=== PATIENT | female | born 1940 | race Caucasian/White ===

== ENCOUNTER 2017-07-24 08:08 | Inpatient (IN) | payer OTHER, MEDICARE ==
[~2017-07-24] VITALS: Ht 167.6 cm; Wt 96.2 kg
[~2017-07-24 08:08] MED LIST: ASPIRIN EC81 M1 PO; AUGMENTIN 875875 MG PO; DEXAMETHASONE4 MG PO; MULTIVITAMIN1 TA1 PO; PROTONIX 40MG T40 MG PO; REVLIMID25 MG PO; VITAMIN D2000 UNI1 PO
--- NOTE | 2017-07-24 08:16 | ED GENERAL ADULT ---
History of Present Illness General Chief Complaint: General Adult Stated Complaint: RECTAL BLEEDING Source: patient, family, old records Exam Limitations: no limitations Allergies Coded Allergies: methocarbamol (Severe, PARALYSIS FROM WAIST DOWN 07/24/17) STATINS (Intermediate, BODY ACHES 02/28/13) Reconcile Medications Acyclovir 400 MG TABLET 1 TAB PO DAILY CANCER (Reported) Amoxicillin/Clavulanate Potass (Amox-Clav 875-125 MG Tablet) 875 MG-125 MG TABLET 1 TAB PO BID ANTIBIOTIC, INFECTION (Reported) Aspirin (Ecotrin*) 81 MG TABLET.DR 1 TAB PO DAILY PE (Reported) Atorvastatin Calcium (Lipitor) 10 MG TABLET 1 TAB PO DAILY CHOLESTEROL ( Reported) Bevacizumab (Avastin) 25 MG/ML VIAL 1 INJ INJ Q30D EYE (Reported) Calcium Citrate 250 MG CALCIUM TABLET 50 MG PO DAILY SUPPLEMENT (Reported) Cholecalciferol (Vitamin D3) (Vitamin D) 2,000 UNIT TABLET 1 TAB PO DAILY VITAMIN SUPPORT (Reported) Cyanocobalamin (Vitamin B-12) 1,000 MCG TABLET 1 TAB PO DAILY VITAMIN SUPPORT (Reported) Light Mineral Oil/Min Oil/Pf (Retaine Mgd Eye Drops) 0.5 %-0.5 % DROPERETTE 1 DROP OU DAILY EYE (Reported) Losartan Potassium 50 MG TABLET 1 TAB PO DAILY HEART (Reported) Metoprolol Succinate 25 MG TAB 1 TAB PO DAILY HEART (Reported) Multivits,Ca,Minerals/Iron/FA (Women's Daily Caplet) 27 MG IRON-400 MCG TABLET 1 TAB PO DAILY VITAMIN SUPPORT (Reported) Mv-Mn/Lutein/Zeax/Bilber/Hb277 (Macular Health Formula Capsule) 5 MG-1 MG-7.5 MG CAPSULE 1 TAB PO DAILY EYE (Reported) Olopatadine HCl (Pazeo) 0.7 % DROPS 1 DROP OU DAILY EYE (Reported) Triage Note: PT TO ED WITH C/O "I GOT UP AND MOVED MY BOWELS THIS MORNING AND THERE WAS BRIGHT RED BLOOD". TAKES BABY ASPIRIN, DIDN'T TAKE THIS AM, HAS HX OF HAD RIGHT LOWER LOBE REMOVED May. Triage Nurses Notes Reviewed? yes Onset: Gradual Duration: hour(s): Timing: no prior history Injury Environment: home Severity: moderate No Modifying Factors: none : No Patient currently breastfeeds: No HPI: Patient is a 76-year-old female with history of diverticulosis, diverticulitis, hemorrhoids, remote history of PE on aspirin, recent right lower lobectomy presenting to the emergency department complaining of one episode of bright red blood per rectum while moving a bowel movements just prior to arrival. Patient reports that she woke up feeling fine and had a cup of coffee, had abdominal cramping and then had the urge to move her bowels. She 7 the platelet move her bowels and when she went to the noticed that bright red blood in the toilet and fell. Just reports associated lightheadedness. No dizziness. Denies any chest pain or palpitations or shortness of breath. She does have history of tachycardia for which she takes metoprolol for the current family member since she had a right lower lobectomy done about one month ago she's been asymptomatic but still taking her medications. (Marlene Gotti) Vital Signs & Intake/Output Vital Signs & Intake/Output Vital Signs Date Time Temp Pulse Resp B/P B/P Pulse O2 O2 Flow FiO2 Mean Ox Delivery Rate 07/24 1121 84 20 147/69 93 Room Air 07/24 0921 98 Room Air 07/24 0900 98.6 78 18 154/78 98 Room Air 07/24 0808 96.5 118 18 169/91 97 Room Air Room Air (Marjan LOPEZ,Abner Giles) Past History Travel History Traveled to [place] past 21 day No Medical History Any Pertinent Medical History? see below for history Neurological: NONE EENT: sinusitis Cardiovascular: hypertension, hyperlipidemia Respiratory: R LUNG BASE REMOVED Gastrointestinal: diverticulitis, hiatal hernia Hepatic: NONE Renal: NONE Musculoskeletal: NONE Psychiatric: NONE Endocrine: ? THYROID NODULE Blood Disorders: NONE Cancer(s): R LUNG CA, MULTIPLE MYELOMA [employer] F[employer]/Reproductive: NONE History of MRSA: No History of VRE: No History of CDIFF: No Pneumonia Vaccine: 09/08/08 Influenza Vaccine: 01/02/09 Surgical History Surgical History: right lower lung removed Psychosocial History Who do you live with Patient/Self Services at Home None What is your primary language Surinamese Tobacco Use: Never used ETOH Use: denies use Illicit Drug Use: denies illicit drug use Family History Hx Contributory? No (Marlene Gotti) Review of Systems Review of Systems Constitutional: Reports: no symptoms. Comments Review of systems: See HPI, All other systems negative. Constitutional, no chills fever or weight loss HEENT: No visual changes no sore throat no congestion Cardiovascular: No chest pain ,palpitation , orthopnea or ankle swelling Skin, no jaundice no rashes Respiratory: No dyspnea cough sputum or hemoptysis GI: No nausea no vomiting : No dysuria No hematuria Muscle skeletal: no back pain, no neck pain, Neurologic: No numbness no confusion no headache Psych: No stress anxiety or depression,. Heme/endocrine: No bruising no bleeding no polyuria or polydipsia Immunology: No splenectomy or history of AIDS (Marlene Gotti) Physical Exam Physical Exam General Appearance: well developed/nourished, no apparent distress, alert, awake , comfortable Comments: Well-developed well-nourished person in no acute distress HEENT: Pupils equally round and reactive to light and accommodation. Nose is atraumatic. External auditory canal and Tympanic membranes clear. Pharynx normal. No swelling or edema. No pallor noted to ocular conjunctiva bilaterally. Moist oromucosa. Neck: normal inspection Back: Nontender Cardiovascular: SINUS TACHY AND REGULAR rhythms Respiratory: Chest nontender. No respiratory distress.diminished breath sounds to the right lower lobe. Abdomen: Soft, nontender nondistended, no appreciable organomegaly. Normal bowel sounds. No ascites, no rebound or gaurding RECTAL: NON-TENDER, NO EXTERNAL HEMORRHOIDS OR INTERNAL HEMORRHOIDS NOTED ON EXAM. DARK BROWN STOOL, WITH BLOOD. GUIAC POSITIVE. Extremity: No edema, no calf tenderness. Pedal pulses are 2+ bilaterally. Neuro: Alert oriented x3, motor sensory normal, cranial nerves II through XII grossly intact. Skin: No appreciable rash on exposed skin, skin is warm and dry. Psych: Mood and affect is normal, memory and judgment is normal. Core Measures ACS in differential dx? No CVA/TIA Diagnosis: No Sepsis Present: No Sepsis Focused Exam Completed? No (Marlene Gotti) Progress Differential Diagnoses I considered the following diagnoses in my evaluation of the patient: Symptomatic anemia, acute lower GI bleed, diverticulitis, diverticular bleed, ischemic colitis, C. difficile Diagnostic Imaging: Viewed by Me: CT Scan. Discussed w/RAD: CT Scan. Radiology Impression: PATIENT: LAUREL PANDYA PRESENT AGE: 76 PATIENT ACCOUNT NO: [id number] : 41 LOCATION: [facility] ORDERING PHYSICIAN: Marlene ACUNA SERVICE DATE: 07/24/17 EXAM TYPE: CAT - CT ABD & PELVIS W IV CONTRAST; CTA CHEST-PULMONARY EMBOLISM EXAMINATION: CT CHEST PE STUDY CT ABDOMEN AND PELVIS WITH CONTRAST CLINICAL INFORMATION: Tachycardia. History of PE. COMPARISON: CT chest dated 01/22/2017 TECHNIQUE: Prior to contrast administration, noncontrast localization images were obtained. Subsequently, multidetector volumetric imaging was performed from the thoracic inlet to below the diaphragms following the administration of 95 mL Optiray 320 intravenous contrast. No contrast reaction reported. Sagittal, coronal, and MIP oblique sagittal reformatted images were obtained on the CT workstation, uploaded to PACS, and reviewed. CT abdomen and pelvis was also performed following CT chest and reformatted in coronal and sagittal planes. Total exam dose-length product: 1251.77 mGy-cm FINDINGS: CHEST VASCULATURE: The bolus timing on this study was acceptable for visualization of the pulmonary arterial tree. Filling defect right lower lobe pulmonary artery suspicious for acute pulmonary embolism (series 2 image 243). Adjacent postoperative changes. No additional emboli are identified. Atherosclerotic disease of the aorta and coronary arteries. LUNGS: Status post right lower lobectomy. Postoperative changes right hilum distal to the bronchus intermedius and at the level of the right lower lobe pulmonary artery and right lower lobe pulmonary vein Probable scarring/atelectatic change right hilar/infrahilar region Compression atelectasis adjacent to the effusion. PLEURA: Small right-sided effusion. There is also loculated effusion right paramediastinal region (series 4 image 14, medial aspect right middle lobe (series 4 image 26). MEDIASTINUM: Filling defect right anterolateral aspect left atrium. Adjacent soft tissue density likely representing scarring or adjacent lymphadenopathy (series 4 image 36-38). Right hilar adenopathy versus postoperative changes and scarring. Small lymph nodes noted elsewhere in the mediastinum. MUSCULOSKELETAL: Scoliosis and degenerative changes of the spine. EXAMINATION: CT ABDOMEN AND PELVIS WITH CONTRAST CLINICAL INFORMATION: Evaluate for diverticulitis.] Blood per rectum. COMPARISON: PET/CT most recent prior dated 11/08/[address] abdomen and pelvis dated 09/10/2013 FINDINGS: LIVER, GALLBLADDER, AND BILIARY TREE: Low-attenuation hepatic foci noted in the caudate lobe, segment 5 and segment 6 right hepatic lobe. Larger lesion in the caudate lobe measures 2.7 x 2.7 cm. Is compatible with cyst. Right hepatic lesions also likely represent cysts. Status post cholecystectomy. No evidence of biliary ductal dilatation. PANCREAS: Unremarkable. SPLEEN: Unremarkable. ADRENAL GLANDS: Unremarkable. KIDNEYS AND URETERS: Low-attenuation cortical lesion lateral aspect left kidney compatible with cyst. Additional smaller low-attenuation lesion mid left kidney too small to be well- characterized. BLADDER: Unremarkable. GASTROINTESTINAL TRACT: Moderate colonic diverticulosis. No definite evidence of acute diverticulitis. Moderate fecal material noted throughout the large bowel and rectum. There is incomplete distention versus wall thickness noted in the large bowel involving the transverse, descending and sigmoid colon. Differential possibility includes mild colitis. No evidence of bowel obstruction. No acute bowel pathology appreciated. ABDOMINAL WALL: No significant hernia is appreciated. LYMPH NODES: Normal. VASCULAR: Atherosclerotic disease with intimal calcification of the aorta and aortic branches. PELVIC VISCERA: Unremarkable. OSSEOUS STRUCTURES: Degenerative changes. IMPRESSION: 1. Interval postoperative changes with right lower lobectomy. 2. Filling defect distal right main pulmonary artery adjacent to the postoperative change. The appearance is suspicious for pulmonary embolism. Filling defect also identified in the anterior aspect left atrium adjacent to the postoperative changes involving the right lower lobe pulmonary vein. 3. No new nodules identified. 4. Low right lung volume. Right-sided effusion including loculated fluid right paramediastinal region and medial aspect right base. 5. Small mediastinal lymph nodes. Soft tissue density right hilar region may represent scarring versus lymphadenopathy. 6. Colonic diverticulosis. No definite evidence of acute diverticulitis. 7. Incomplete distention versus mild colonic wall thickness involving transverse colon, descending and sigmoid colon. This especially evident in the distal descending/sigmoid colon (series 602 image 40). Colitis is included in the differential possibility. Direct visualization recommended. 8. Hepatic and left renal cysts. VTE: Positive Critical results discussed with ARMAND Cavazos at 10:30 AM on 07/24/2017. DICTATED BY: Guanakito Valentino MD DATE/TIME DICTATED:07/24/17943 SIGN ARTIST:PAPITO DATE/ TIME TRANSCRIBED:07/24/17943 CONFIDENTIAL, DO NOT COPY WITHOUT APPROPRIATE AUTHORIZATION. <Electronically signed in Other Vendor System> SIGNED BY: Guanakito Valentino MD 07/24/17 1039 Initial ED EKG: SINUS RHYTHM AT 93 BPM Prior EKG: unchanged (Brandon ACUNA,Marlene) Plan of Care: Orders Procedure Date/time Status Clear Liquid Diet 07/24 D Active Patient Data 07/24 1246 Active Misc Message 07/24 1240 Active ED Holding Orders 07/24 1240 Active Admit to inpatient 07/24 1240 Active Vital Signs 07/24 1240 Active Code Status 07/24 1240 Active Telemetry/Pullman Car Clerk 07/24 0854 Active EKG 07/24 0854 Active Intake & Output 07/24 0832 Active MISTAKE 07/25 0718 Active URINALYSIS 07/24 817 Complete PARTIAL THROMBOPLASTIN TIME 07/24 817 Complete PROTHROMBIN TIME 07/24 817 Complete LACTIC ACID 07/24 817 Complete COMPREHENSIVE METABOLIC PANEL 07/24 817 Complete CBC WITHOUT DIFFERENTIAL 07/24 817 Complete Laboratory Tests 07/24/17 1118: Lactic Acid Cancelled 07/24/17 0935: Urine Color YEL, Urine Clarity CLEAR, Urine pH 6.0, Ur Specific [place] <= 1.005 , Urine Protein NEG, Urine Ketones NEG, Urine Nitrite NEG, Urine Bilirubin NEG, Urine Urobilinogen 0.2, Ur Leukocyte Esterase NEG, Ur Microscopic SEDIMENT EXAMINED, Urine RBC 1-3, Ur Epithelial Cells RARE, Urine Hemoglobin SMALL H, Urine Glucose NEG 07/24/17 0829: Anion Gap 14, Estimated GFR > 60, BUN/Creatinine Ratio 15.0, Glucose 110 H, Lactic Acid 1.5, Calcium 9.6, Total Bilirubin 0.6, AST 28, ALT 38, Alkaline Phosphatase 71, Total Protein 8.0, Albumin 4.2, Globulin 3.8, Albumin/Globulin Ratio 1.1, PT 10.8, INR 0.99, APTT 33, CBC w Diff NO MAN DIFF REQ, RBC 3.78 L, MCV 97.1, MCH 33.2 H, MCHC 34.2, RDW 14.5, MPV 7.8, Gran % 49.4, Lymphocytes % 37.5, Monocytes % 9.0, Eosinophils % 4.0, Basophils % 0.1, Absolute Granulocytes 4.4, Absolute Lymphocytes 3.3, Absolute Monocytes 0.8 H, Absolute Eosinophils 0.4, Absolute Basophils 0 07/24/2017 11:09:34 AM patient informed of all of her results. Patient was orthostatic positive on arrival. IV fluids hanging. Patient went from sinus tachycardia to sinus rhythm on the monitor. Patient does have history of PE and came in tachycardic around 118. Cannot exclude PE although patient not complaining of any shortness of breath or chest pain. Patient did have recent surgery. H&H is stable. 07/24/2017 1:10:[address] of [address] results. Still pending call back from vascular and GI. Patient will be admitted for pulmonary embolus. (Marlene Gotti) Comments: 07/24/2017 12:21:26 PM I have discussed this patient's case with the hospitalist. We have discussed the patient's pulmonary embolism noted on CAT scan and her history of bright red rectal bleeding. Dr. crandall is also aware that we are expecting call back from pulmonary, GI and vascular. (Marjan LOPEZ,Abner Giles) Departure Departure Time of Disposition: 1310 Disposition: STILL A PATIENT Condition: Stable Clinical Impression Primary Impression: Pulmonary embolism Qualifiers: Pulmonary embolism type: other Chronicity: acute Acute cor pulmonale presence: without acute cor pulmonale Qualified Code: I26.99 - Other pulmonary embolism without acute cor pulmonale Secondary Impressions: Colitis Referrals: Alma LOPEZ,Da Hampton (PCP/Family) Departure Forms: Customer Survey General Discharge Information Admission Note Spoke With: Ean Crandall MD Documentation of Exam: Documentation of any treatments & extenuating circumstances including Concerns Regarding Discharge (functional status, medication knowledge or non-compliance, living conditions, etc.) that warrant an admission rather than observation: Patient will be admitted to telemetry for pulmonary embolus, colitis, lower GI bleed. Patient will need vascular consultation regarding treatment for pulmonary embolus, pulmonology consultation, GI consultation secondary to colitis/GI bleed. Patient's vitals are stable. Dr. Phillip spoke with Dr. Moreno who accepted the patient for admission. (Marlene Gotti) PA/BEAM RACKER Co-Sign Statement Statement: ED Attending supervision documentation- [X] I saw and evaluated the patient. I have also reviewed all the pertinent lab results and diagnostic results. I agree with the findings and the plan of care as documented in the PA's/BEAM RACKER's documentation. Patient presents for evaluation of rectal bleeding with recent surgery. Physical examination reveals a comfortable appearing conversant woman with good color. [] I have reviewed the ED Record and agree with the PA's/BEAM RACKER's documentation. [] Additions or exceptions (if any) to the PAs/BEAM RACKER's note and plan are summarized below: [] (Marjan LOPEZ,Abner Giles) Critical Care Note Critical Care Note Critical Care Time: non-applicable (Brandon ACUNA,Marlene)
[2017-07-24] MEDS ORDERED: METOPROLOL SUCC25 M1 PO (08:26)
[2017-07-24] MEDS ORDERED: ACYCLOVIR400 M1 PO (08:26)
[2017-07-24] MEDS ORDERED: LOSARTAN POTASS50 M1 PO (08:27)
[2017-07-24] MEDS ORDERED: LIPITOR10 M1 PO (08:27)
[2017-07-24] MEDS ORDERED: CALCIUM CITRAT250 M1 PO (08:28)
[2017-07-24] MEDS ORDERED: VITAMIN B-121000 MC3 PO (08:29)
[2017-07-24] MEDS ORDERED: WOMEN'S DAILY1 EAC3 PO (08:30)
[2017-07-24] MEDS ORDERED: MACULAR HEALTH1 EACH PO (08:30)
[2017-07-24] MEDS ORDERED: AVASTIN25 MG/1 ML INJ (08:31)
[2017-07-24] MEDS ORDERED: PAZEO2.5 ML OU (08:32)
[2017-07-24] MEDS ORDERED: RETAINE MGD EY1 EACH OU (08:32)
[2017-07-24] MEDS ORDERED: AMOX-CLAV 875-1 EACH PO (08:33)
[2017-07-24 08:43] LABS: ABSOLUTE BASOPHIL COUNT 0 /CUMM (0.0-0.2); ABSOLUTE EOSINOPHIL COUNT 0.4 /CUMM (0.0-0.7); ABSOLUTE GRANULOCYTE CT 4.4 /CUMM (1.4-6.5); ABSOLUTE LYMPH COUNT 3.3 /CUMM (1.2-3.4); ABSOLUTE MONOCYTE COUNT 0.8 /CUMM (0.10-0.60); BASOPHIL % 0.1 % (0.0-2.0); GRANULOCYTE % 49.4 % (42.2-75.2); HEMATOCRIT 36.8 % (37-47); MEAN CORPUSCULAR HGB 33.2 PG (27.0-31.0); MEAN CORPUSCULAR HGB CONC 34.2 G/DL (33.0-37.0); MEAN CORPUSCULAR VOLUME 97.1 FL (81.0-99.0); MEAN PLATELET VOLUME 7.8 FL (7.4-10.4); PLATELET COUNT 240 /CUMM (130-400); RBC DISTRIBUTION WIDTH 14.5 % (11.5-14.5); RED BLOOD CELL CT 3.78 /CUMM (4.20-5.40); WHITE BLOOD CELL COUNT 8.8 /CUMM (4.8-10.8)
[2017-07-24 08:49] LABS: PT 10.8 SEC (9.4-12.5); PTT 33 SEC (25-37)
--- NOTE | 2017-07-24 10:39 | CT SCAN REPORT ---
EXAMINATION: CT CHEST PE STUDY CT ABDOMEN AND PELVIS WITH CONTRAST CLINICAL INFORMATION: Tachycardia. History of PE. COMPARISON: CT chest dated 01/22/2017 TECHNIQUE: Prior to contrast administration, noncontrast localization images were obtained. Subsequently, multidetector volumetric imaging was performed from the thoracic inlet to below the diaphragms following the administration of 95 mL Optiray 320 intravenous contrast. No contrast reaction reported. Sagittal, coronal, and MIP oblique sagittal reformatted images were obtained on the CT workstation, uploaded to PACS, and reviewed. CT abdomen and pelvis was also performed following CT chest and reformatted in coronal and sagittal planes. Total exam dose-length product: 1251.77 mGy-cm FINDINGS: CHEST VASCULATURE: The bolus timing on this study was acceptable for visualization of the pulmonary arterial tree. Filling defect right lower lobe pulmonary artery suspicious for acute pulmonary embolism (series 2 image 243). Adjacent postoperative changes. No additional emboli are identified. Atherosclerotic disease of the aorta and coronary arteries. LUNGS: Status post right lower lobectomy. Postoperative changes right hilum distal to the bronchus intermedius and at the level of the right lower lobe pulmonary artery and right lower lobe pulmonary vein Probable scarring/atelectatic change right hilar/infrahilar region Compression atelectasis adjacent to the effusion. PLEURA: Small right-sided effusion. There is also loculated effusion right paramediastinal region (series 4 image 14, medial aspect right middle lobe (series 4 image 26). MEDIASTINUM: Filling defect right anterolateral aspect left atrium. Adjacent soft tissue density likely representing scarring or adjacent lymphadenopathy (series 4 image 36-38). Right hilar adenopathy versus postoperative changes and scarring. Small lymph nodes noted elsewhere in the mediastinum. MUSCULOSKELETAL: Scoliosis and degenerative changes of the spine. EXAMINATION: CT ABDOMEN AND PELVIS WITH CONTRAST CLINICAL INFORMATION: Evaluate for diverticulitis.] Blood per rectum. COMPARISON: PET/CT most recent prior dated 11/08/[address] abdomen and pelvis dated 09/10/2013 FINDINGS: LIVER, GALLBLADDER, AND BILIARY TREE: Low-attenuation hepatic foci noted in the caudate lobe, segment 5 and segment 6 right hepatic lobe. Larger lesion in the caudate lobe measures 2.7 x 2.7 cm. Is compatible with cyst. Right hepatic lesions also likely represent cysts. Status post cholecystectomy. No evidence of biliary ductal dilatation. PANCREAS: Unremarkable. SPLEEN: Unremarkable. ADRENAL GLANDS: Unremarkable. KIDNEYS AND URETERS: Low-attenuation cortical lesion lateral aspect left kidney compatible with cyst. Additional smaller low-attenuation lesion mid left kidney too small to be well-characterized. BLADDER: Unremarkable. GASTROINTESTINAL TRACT: Moderate colonic diverticulosis. No definite evidence of acute diverticulitis. Moderate fecal material noted throughout the large bowel and rectum. There is incomplete distention versus wall thickness noted in the large bowel involving the transverse, descending and sigmoid colon. Differential possibility includes mild colitis. No evidence of bowel obstruction. No acute bowel pathology appreciated. ABDOMINAL WALL: No significant hernia is appreciated. LYMPH NODES: Normal. VASCULAR: Atherosclerotic disease with intimal calcification of the aorta and aortic branches. PELVIC VISCERA: Unremarkable. OSSEOUS STRUCTURES: Degenerative changes. IMPRESSION: 1. Interval postoperative changes with right lower lobectomy. 2. Filling defect distal right main pulmonary artery adjacent to the postoperative change. The appearance is suspicious for pulmonary embolism. Filling defect also identified in the anterior aspect left atrium adjacent to the postoperative changes involving the right lower lobe pulmonary vein. 3. No new nodules identified. 4. Low right lung volume. Right-sided effusion including loculated fluid right paramediastinal region and medial aspect right base. 5. Small mediastinal lymph nodes. Soft tissue density right hilar region may represent scarring versus lymphadenopathy. 6. Colonic diverticulosis. No definite evidence of acute diverticulitis. 7. Incomplete distention versus mild colonic wall thickness involving transverse colon, descending and sigmoid colon. This especially evident in the distal descending/sigmoid colon (series 602 image 40). Colitis is included in the differential possibility. Direct visualization recommended. 8. Hepatic and left renal cysts. VTE: Positive Critical results discussed with ARMAND Cavazos at 10:30 AM on 07/24/2017.
--- NOTE | 2017-07-24 13:52 | History & Physical ---
Stephanie LOPEZ,[place] 07/24/17 1333: General Information and HPI MD Statement: I have seen and personally examined LAUREL ROD and documented this H&P. The patient is a 76 year old F who presented with a patient stated chief complaint of [bright red blood per rectum]. Source of Information: patient, family Exam Limitations: no limitations History of Present Illness: Patient is a 76-year-old female with past medical history of colonic developed cholelithiasis and diverticulitis, CMV retinitis, macula degeneration, hypertension, hyperlipidemia, multiple myeloma on Cytoxan and steroids, Rt sided breast cancer status post chemotherapy in remission, remote history of PE (? side) following a right knee replacement surgery in 2007, recent right lower lobectomy secondary to stage I right lung cancer who presents with bright red blood per rectum this morning while having a bowel movement. She was in her usual state of health until last night when she noticed a small amount of browish/red stool which she thought nothing of. This morning after she had had her morning coffee, she developed some abd. rumbling and felt the need to move her bowels urgently and had 1 episode of large volume loose stool that was bright red. She has a hx of external hemorrhoids that were removed many years ago. She takes a daily baby aspirin or NSAIDs, only takes acetraminophen as needed for pain. She is a former smoker and denies alcohol use. She endorses lightheadness but no dizziness, pre-syncope or falls. She denies any abdominal pain or discomfort, nausea without vomiting, chest pain or shortness of breath. She had an upper endoscopy/colonoscopy in 2013 that revealed severe pandiverticulosis, mild erosive gastritis, mixed hemorrhoidal disease and a benign duodenal polyp that was removed. She had adenomatous polyps in 2007 which were removed. She has however been taking steroids along with Cytoxan for multiple myeloma but this was recently discontinued prior to her recent lobectomy on June 24 2017 at [facility] and because her MM was not responding to it any longer. She is to start a new regimen and will be following up with her oncologist Dr. Tati Brown at [place]. She recived a dose of IVIG last week and her last dose of cytoxan was on June 17. She is on augmentin for sinus infection, was to complete her lost dose tomorrow- friday. She takes acyclovir daily for viral suppression due to a positive viral nasal swab. Her director digital catalogue is Dr. Figueroa. Allergies/Medications Allergies: Coded Allergies: methocarbamol (Severe, PARALYSIS FROM WAIST DOWN 07/24/17) STATINS (Intermediate, BODY ACHES 02/28/13) Home Med list Acyclovir 400 MG TABLET 1 TAB PO DAILY CANCER (Reported) Amoxicillin/Clavulanate Potass (Amox-Clav 875-125 MG Tablet) 875 MG-125 MG TABLET 1 TAB PO BID ANTIBIOTIC, INFECTION (Reported) Aspirin (Ecotrin*) 81 MG TABLET.DR 1 TAB PO DAILY PE (Reported) Atorvastatin Calcium (Lipitor) 10 MG TABLET 1 TAB PO DAILY CHOLESTEROL ( Reported) Bevacizumab (Avastin) 25 MG/ML VIAL 1 INJ INJ Q30D EYE (Reported) Calcium Citrate 250 MG CALCIUM TABLET 50 MG PO DAILY SUPPLEMENT (Reported) Cholecalciferol (Vitamin D3) (Vitamin D) 2,000 UNIT TABLET 1 TAB PO DAILY VITAMIN SUPPORT (Reported) Cyanocobalamin (Vitamin B-12) 1,000 MCG TABLET 1 TAB PO DAILY VITAMIN SUPPORT (Reported) Light Mineral Oil/Min Oil/Pf (Retaine Mgd Eye Drops) 0.5 %-0.5 % DROPERETTE 1 DROP OU DAILY EYE (Reported) Losartan Potassium 50 MG TABLET 1 TAB PO DAILY HEART (Reported) Metoprolol Succinate 25 MG TAB 1 TAB PO DAILY HEART (Reported) Multivits,Ca,Minerals/Iron/FA (Women's Daily Caplet) 27 MG IRON-400 MCG TABLET 1 TAB PO DAILY VITAMIN SUPPORT (Reported) Mv-Mn/Lutein/Zeax/Bilber/Hb277 (Macular Health Formula Capsule) 5 MG-1 MG-7.5 MG CAPSULE 1 TAB PO DAILY EYE (Reported) Olopatadine HCl (Pazeo) 0.7 % DROPS 1 DROP OU DAILY EYE (Reported) Compliance With Home Meds: GOOD Past History Travel History Traveled to [place] past 21 day No Medical History Neurological: NONE EENT: sinusitis Cardiovascular: hypertension, hyperlipidemia Respiratory: R LUNG BASE REMOVED Gastrointestinal: diverticulitis, hiatal hernia Hepatic: NONE Renal: NONE Musculoskeletal: NONE Psychiatric: NONE Endocrine: ? 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 BROTHER FH: diabetes mellitus Psychosocial History Where do you live? Home Who Do You Live With? self Services at Home: None Smoking Status: Former Smoker ETOH Use: denies use Illicit Drug Use: denies illicit drug use Living Will? yes Power of Marine Surveyor/HCP? yes Name of POA/HCP: Rachel perez and Tu Rod (kids) Functional Ability ADLs Independent: dressing, eating, toileting, bathing. Ambulation: independent IADLs Independent: shopping, housework, finances, food prep, telephone, transportation , medication admin. 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 Exam & Diagnostic Data Last 24 Hrs of Vital Signs/I&O Vital Signs Date Time Temp Pulse Resp B/P B/P Pulse O2 O2 Flow FiO2 Mean Ox Delivery Rate 07/24 1544 98.4 77 18 169/77 97 Room Air 07/24 1432 98.6 79 18 136/88 98 Room Air 07/24 1121 84 20 147/69 93 Room Air 07/24 0921 98 Room Air 07/24 0900 98.6 78 18 154/78 98 Room Air 07/24 0808 96.5 118 18 169/91 97 Room Air Room Air Intake & Output 07/24 1600 07/24 0800 07/24 0000 Intake Total 0 Output Total Balance 0 Intake, Oral 0 Patient 212 lb Weight Physical Exam General Appearance Alert, Oriented X3, Cooperative, No Acute Distress Skin No Significant Lesion Skin Temp/Moisture Exam: Warm/Dry Sepsis Skin Exam (color): Normal for Ethnicity HEENT PERRLA, EOMI, Mucous Membr. moist/pink Cardiovascular Regular Rate, Normal S1, Normal S2, No Murmurs Lungs Clear to Auscultation, absent air entry on Rt lower lung zone, small healed scar on Rt posterior chest wall Abdomen Normal Bowel Sounds, Soft, No Tenderness Extremities No Edema, Normal Pulses, No Tenderness/Swelling Rectal Guaic positive Last 24 Hrs of Labs/Bryon: Laboratory Tests 07/24/17 1118: Lactic Acid Cancelled 07/24/17 0935: Urine Color YEL, Urine Clarity CLEAR, Urine pH 6.0, Ur Specific [place] <= 1.005 , Urine Protein NEG, Urine Ketones NEG, Urine Nitrite NEG, Urine Bilirubin NEG, Urine Urobilinogen 0.2, Ur Leukocyte Esterase NEG, Ur Microscopic SEDIMENT EXAMINED, Urine RBC 1-3, Ur Epithelial Cells RARE, Urine Hemoglobin SMALL H, Urine Glucose NEG 07/24/17 0829: Anion Gap 14, Estimated GFR > 60, BUN/Creatinine Ratio 15.0, Glucose 110 H, Lactic Acid 1.5, Calcium 9.6, Total Bilirubin 0.6, AST 28, ALT 38, Alkaline Phosphatase 71, Troponin I < 0.01, Total Protein 8.0, Albumin 4.2, Globulin 3.8, Albumin/Globulin Ratio 1.1, TSH Pending, Thyroxine (T4) Pending, PT 10.8, INR 0.99, APTT 33, CBC w Diff NO MAN DIFF REQ, RBC 3.78 L, MCV 97.1, MCH 33.2 H, MCHC 34.2, RDW 14.5, MPV 7.8, Gran % 49.4, Lymphocytes % 37.5, Monocytes % 9.0, Eosinophils % 4.0, Basophils % 0.1, Absolute Granulocytes 4.4, Absolute Lymphocytes 3.3, Absolute Monocytes 0.8 H, Absolute Eosinophils 0.4, Absolute Basophils 0 Diagnostic Data EKG Results NSR [address] ABD & PELVIS W IV CONTRAST; CTA CHEST-PULMONARY EMBOLISM IMPRESSION: 1. Interval postoperative changes with right lower lobectomy. 2. Filling defect distal right main pulmonary artery adjacent to the postoperative change. The appearance is suspicious for pulmonary embolism. Filling defect also identified in the anterior aspect left atrium adjacent to the postoperative changes involving the right lower lobe pulmonary vein. 3. No new nodules identified. 4. Low right lung volume. Right-sided effusion including loculated fluid right paramediastinal region and medial aspect right base. 5. Small mediastinal lymph nodes. Soft tissue density right hilar region may represent scarring versus lymphadenopathy. 6. Colonic diverticulosis. No definite evidence of acute diverticulitis. 7. Incomplete distention versus mild colonic wall thickness involving transverse colon, descending and sigmoid colon. This especially evident in the distal descending/sigmoid colon (series 602 image 40). Colitis is included in the differential possibility. Direct visualization recommended. 8. Hepatic and left renal cysts. Assessment/Plan Assessment: Patient is a 76-year-old female with past medical history of colonic developed cholelithiasis and diverticulitis, hypertension, hyperlipidemia, multiple myeloma on Cytoxan and steroids, breast cancer status post chemotherapy in remission, remote history of PE (? side) following a right knee replacement surgery in 2007, recent right lower lobectomy secondary to stage I right lung cancer who presents with bright red blood per rectum this morning while having a bowel movement. Assessment 1. Right lower lobe pulmonary embolism-unlcear if this is an artifact due to recent surgery in the area, an old PE or an acute PE. She has risk factors of recent surgery in the past 4 weeks/decreased mobility due to hospitalization and cancer 2. Acute lower GI bleed-Could be due to diverticulosis vs interanl hemmorrhoids. Less likely an ulcer from prolonged steroid use 3. History of multiple myeloma-treated with cytoxan and steroids 4. History of right lower lobe lung cancer status post lobectomy in May 2017 5. History of breast cancer in 2004 s/p resection and chemo. In remission 6. History of hypertension, hyperlipidemia 7. Hx of previous PE following a knee replacement surgery in 2007 Plan -Admit to telemetry floor for close monitoring -Hold off anticoagulation for now due to GI bleed -Obtain venous dopplers of bilateral lower extremities; she however has a Wells score of 2 (low probability of a DVT) but if positive patient may need an IVC filter as she cannot be anticoagulated with active GI bleed -Obtain an echocardiogram to rule out right heart strain -Urgent GI consult for possible colonoscopy -Pulmonary consult -Check EKG/Trop -Patient needs 2 large bore IVs; type and screen -Watch for acute bleed and vitals q shift; low threshold for ICU transfer if pt becomes unstable -Continue her impt home medications including acyclovir; will also continue her last 3 doses of augmentin for sinusitis. -Hold aspirin for now; avoid NSAIDS or other blood thinners for now -Alps for DVT -FC -Clear liquid diet for now until GI eval As Ranked By This Provider Problem List: 1. Pulmonary embolism Qualifiers Pulmonary embolism type: other Chronicity: acute Acute cor pulmonale presence: without acute cor pulmonale Qualified Code: I26.99 - Other pulmonary embolism without acute cor pulmonale 2. Lower GI bleed Core Measures/Misc (12/15) Acute Coronary Syndrome ACS Diagnosis: No Congestive Heart Failure Congestive Heart Failure Diagnosis No Cerebrovascular Accident CVA/TIA Diagnosis: No VTE (View Protocol) VTE Risk Factors Cancer/chemo/othr therapy No Mechanical VTE Prophylaxis d/t N/A MechProphylax Ordered No VTE Pharm Prophylaxis d/t Bleeding (Active) Sepsis (View protocol) Sepsis Present: No Resident Review Statement Resident Statement: examined this patient Other Findings: see HPI Cristian To MD 07/24/17 2209: Attending MD Review Statement Attending Statement Attending MD Statement: examined this patient, discuss w/resident/PA/COVER INSPECTOR, agreed w/resident/PA/COVER INSPECTOR, reviewed EMR data (avail), reviewed images, amended to note Attending Assessment/Plan: The patient is a 76 yo female with h/o HTN, HL, multiple myeloma (on Cytoxan and steroid), h/o breast ca (s/p prior chemo), h/o recent RLL lung ca (s/p resection lobectomy 07/16), known pandiverticulosis and hemorrhoids (on prior colonoscopy in past), h/o PE in past (post knee replacement) who presented in the [facility] ED with c/o bright red blood per rectum today. She denied any abdominal pain or rectal pain. She does take ASA daily, however no other anticoagulation. Had transiently been at [facility] [place] post RLL lobectomy (at [place]) and has now been home. She denied any dyspnea, chest pain, fever, chills, etc. Dr. Zuniga had done her prior colonoscopy and also noted polyps. She also had a prior EGD done by Dr. Humphreys showing erosive gastritis. Physical Exam: VS: T 96.5, P 118-77, R 18, BP 159/91-136/88, PO 98-98% on RA HEENT: eyes- PERRLA, EOMI dallin- dry mucosa Neck: supple, no bruits or JVD Chest: clear, diminished BS at right base Cor: RRR (at time of my exam), nl S1, S2 w/o murm Abd: BS+, soft, NT, - HSM Ext: no edema, pulses 2+ Neuro: alert oriented x 3, non-focal exam Labs/Tests- as above Impression/Plan: #Acute Lower Gastrointestinal Bleeding- painless bleeding. Most likely source would be either hemorrhoids or diverticular (known from prior colonoscopy). H/H is at baseline. Plan: Admit to telemetry floor- close hemodynamic monitoring. Serial H/H- q8h. GI consult- Dr. Humphreys (done)- ? colonoscopy. Type & Cross- 2 large bore IV's. #Possible Pulmonary Embolism- patient is w/o any pulmonary symptoms and normal pulse ox. CTPA done suggested possible clot in region of recent surgery (RLL), however may be artifact. No hypoxia or other symptoms (was tachycardic on presentation). Appreciate pulmonary input from Dr. Figueroa. Venous US LE is negative for DVT. Patient does have multiple risk factors for PE including history of PE post TKR in distant past, malignancy, steroid Rx, decreased mobility related to recent lung surgery. Plan: Will hold anticoagulation at present. Plan as per Dr. Figueroa's note. May need repeat CTPA in near future. Check ECHO for right heart strain. #Multiple Myeloma/h/o RLL Lung CA (s/p resection- stage I)/h/o Breast CA- patient with h/o multiple malignancies with multiple myeloma still being active. On Cytoxan. Plan: Hold chemo at present. #Essential HTN- BP as above. Plan: Continue Losartan & Metoprolol. #Hyperlipidemia- on Atorvastatin. Plan: Continue Atorvastatin.
--- NOTE | 2017-07-24 15:38 | Cons- Gastroenterology ---
General Information and HPI Consulting Request Date of Consult: 07/24/17 Requested By: Cristian To MD Reason for Consult: Hematochezia. Change in bowel habits; ct scan showing diverituclosis. Source of Information: patient, old records Exam Limitations: no limitations History of Present Illness: Ms. Rod is a 76 year old female with multiple medical problems including but not limited to a PE, breast cancer and multiple myeloma who presented to today with complaints of brbpr. She notes that last night when she went to the bathroom she noted a scant amount of red blood and then this morning she the urge to move her bowels and only passed liquid blood. The bleeding was not associated with any abdominal pain and she denies any recent significant constipation. She does note that she takes stool softeners when she is on prednisone which helps her have normal bowel movements. She has not had any upper abdominal pain with eating nor has she had any vomiting or complaints of heartburn. She denies having bleeding similar to this in the past. In the ER she was noted to be tachycardic, but normotensive. Because of her history of a PE she underwent a CT angiogram of her chest as well as her abdomen. The CT angiogram of the chest did show a filling defect, but she does not have any lower extremity clots by ultrasound and her web marketing analyst currently does not feel that she has an active PE. The CT angiogram was negative for active bleeding, but did show diverticulosis. Her tachycardia has resolved with IV fluids and she has remained normotensive and has not had any bleeding since she has been in the emergency room. Allergies/Medications Allergies: Coded Allergies: methocarbamol (Severe, PARALYSIS FROM WAIST DOWN 07/24/17) STATINS (Intermediate, BODY ACHES 02/28/13) Home Med List: Acyclovir 400 MG TABLET 1 TAB PO DAILY CANCER (Reported) Atorvastatin Calcium (Lipitor) 10 MG TABLET 1 TAB PO DAILY CHOLESTEROL ( Reported) Bevacizumab (Avastin) 25 MG/ML VIAL 1 INJ INJ Q30D EYE (Reported) Calcium Citrate 250 MG CALCIUM TABLET 50 MG PO DAILY SUPPLEMENT (Reported) Cholecalciferol (Vitamin D3) (Vitamin D) 2,000 UNIT TABLET 1 TAB PO DAILY VITAMIN SUPPORT (Reported) Cyanocobalamin (Vitamin B-12) 1,000 MCG TABLET 1 TAB PO DAILY VITAMIN SUPPORT (Reported) Light Mineral Oil/Min Oil/Pf (Retaine Mgd Eye Drops) 0.5 %-0.5 % DROPERETTE 1 DROP OU DAILY EYE (Reported) Losartan Potassium 50 MG TABLET 1 TAB PO DAILY HEART (Reported) Metoprolol Succinate 25 MG TAB 1 TAB PO DAILY HEART (Reported) Multivits,Ca,Minerals/Iron/FA (Women's Daily Caplet) 27 MG IRON-400 MCG TABLET 1 TAB PO DAILY VITAMIN SUPPORT (Reported) Mv-Mn/Lutein/Zeax/Bilber/Hb277 (Macular Health Formula Capsule) 5 MG-1 MG-7.5 MG CAPSULE 1 TAB PO DAILY EYE (Reported) Olopatadine HCl (Pazeo) 0.7 % DROPS 1 DROP OU DAILY EYE (Reported) Polyethylene Glycol 3350 (Miralax) 17 GRAM/DOSE POWDER 17 GM PO DAILY CONSTIPATION Sennosides/Docusate Sodium (Senna Plus Tablet) 8.6 MG-50 MG TABLET 2 TAB PO DAILY PRN CONSTIPATION Current Medications: Current Medications Sig/Steven Start time Last Medication Dose Route Stop Time Status Admin Acetaminophen 650 MG Q6P PRN 07/24 1515 UNVr PO Acyclovir 400 MG DAILY 07/25 0900 UNVr PO 07/26 0859 Amoxicillin/ 875 MG BID 07/24 2100 UNVr Clavulanate Potassium PO 07/25 2101 Atorvastatin Calcium 10 MG DAILY 07/25 0900 UNVr PO Cholecalciferol 2,000 IU DAILY 07/25 0900 UNVr PO Losartan Potassium 50 MG DAILY 07/25 0900 UNVr PO Metoprolol Succinate 25 MG DAILY 07/25 0900 AC PO Multivitamins 1 TAB DAILY 07/25 0900 AC PO Sodium Chloride 1,000 ML BOLUS ONE 07/24 0945 DC 07/24 IV 07/24 1144 0945 Past History Travel History Traveled to [place] past 21 day No Medical History Neurological: NONE EENT: sinusitis Cardiovascular: hypertension, hyperlipidemia Respiratory: R LUNG BASE REMOVED Gastrointestinal: diverticulitis, hiatal hernia Hepatic: NONE Renal: NONE Musculoskeletal: NONE Psychiatric: NONE Endocrine: ? THYROID NODULE Blood Disorders: NONE Cancer(s): breast cancer, R LUNG CA, MULTIPLE MYELOMA DRILL PRESS HAND/Reproductive: NONE Surgical History Surgical History: right lower lung removed Psychosocial History Where Do You Live? Home Who Do You Live With? self Services at Home: None Smoking Status: Former Smoker ETOH Use: denies use Illicit Drug Use: denies illicit drug use Living Will? yes Power of Radiology Clerk/HCP? yes Name of POA/HCP: Rachel yasminetalib and Tu Rod (kids) Functional Ability ADLs Independent: dressing, eating, toileting, bathing. Ambulation: independent IADLs Independent: shopping, housework, finances, food prep, telephone, transportation , medication admin. Employment History Employment: Retired Profession/Employer: [employer] Review of Systems Review of Systems Constitutional: Denies: diaphoresis, fever, weakness. EENTM: Denies: no symptoms. Cardiovascular: Denies: no symptoms. Respiratory: Denies: no symptoms. GI: Reports: see HPI. Genitourinary: Denies: no symptoms. Musculoskeletal: Denies: no symptoms. Skin: Denies: no symptoms. Neurological/Psychological: Denies: no symptoms. Hematologic/Endocrine: Denies: no symptoms. Immunologic/Allergic: Denies: no symptoms. All Other Systems: Reviewed and Negative Exam & Diagnostic Data Vital Signs and I&O Vital Signs Date Time Temp Pulse Resp B/P B/P Pulse O2 O2 Flow FiO2 Mean Ox Delivery Rate 07/24 1432 98.6 79 18 136/88 98 Room Air 07/24 1121 84 20 147/69 93 Room Air 07/24 0921 98 Room Air 07/24 0900 98.6 78 18 154/78 98 Room Air 07/24 0808 96.5 118 18 169/91 97 Room Air Room Air Intake & Output 07/24 1600 07/24 0400 07/23 1600 07/23 0400 07/22 1600 07/22 0400 Intake Total 0 Output Total Balance 0 Intake, Oral 0 Patient 212 lb Weight Physical Exam General Appearance: well developed/nourished, no apparent distress, alert, awake , comfortable Head: atraumatic, normal appearance Eyes: Bilateral: normal appearance. Ears, Nose, Throat: normal pharynx, normal ENT inspection, hearing grossly normal Neck: normal inspection, supple, full range of motion Respiratory: normal breath sounds Cardiovascular: regular rate/rhythm Gastrointestinal: normal bowel sounds, soft, non-tender, no organomegaly Rectal: deferred Back: normal inspection, normal range of motion Skin: intact, normal color, warm/dry Results Pertinent Lab Results: Laboratory Tests 07/24 07/24 1118 0935 Chemistry Lactic Acid Cancelled Urines Urine Color (YEL,AMB,STR) YEL Urine Clarity (CLEAR) CLEAR Urine pH (5.0 - 8.0) 6.0 Ur Specific [place] (1.001 - 1.035) <= 1.005 Urine Protein (NEG,<30 MG/DL) NEG Urine Ketones (NEG) NEG Urine Nitrite (NEG) NEG Urine Bilirubin (NEG) NEG Urine Urobilinogen (0.1 - 1.0 EU/dl) 0.2 Ur Leukocyte Esterase (NEG) NEG Ur Microscopic SEDIMENT EXAMINED Urine RBC (0 - 5 /HPF) 1-3 Ur Epithelial Cells (NONE,FEW) RARE Urine Hemoglobin (NEG) SMALL H Urine Glucose (N MG/DL) NEG 07/24 0829 Chemistry Sodium (137 - 145 mmol/L) 143 Potassium (3.5 - 5.1 mmol/L) 3.9 Chloride (98 - 107 mmol/L) 107 Carbon Dioxide (22 - 30 mmol/L) 22 Anion Gap (5 - 16) 14 BUN (7 - 17 mg/dL) 12 Creatinine (0.5 - 1.0 mg/dL) 0.8 Estimated GFR (>60 ml/min) > 60 BUN/Creatinine Ratio (7 - 25 %) 15.0 Glucose (65 - 99 mg/dL) 110 H Lactic Acid (0.7 - 2.1 mmol/L) 1.5 Calcium (8.4 - 10.2 mg/dL) 9.6 Total Bilirubin (0.2 - 1.3 mg/dL) 0.6 AST (14 - 36 U/L) 28 ALT (9 - 52 U/L) 38 Alkaline Phosphatase (<127 U/L) 71 Troponin I (< 0.11 ng/ml) < 0.01 Total Protein (6.3 - 8.2 g/dL) 8.0 Albumin (3.5 - 5.0 g/dL) 4.2 Globulin (1.9 - 4.2 gm/dL) 3.8 Albumin/Globulin Ratio (1.1 - 2.2 %) 1.1 TSH (0.270 - 4.200 uIU/mL) Pending Thyroxine (T4) (4.5 - 10.9 ug/dL) Pending Coagulation PT (9.4 - 12.5 SEC) 10.8 INR (0.90 - 1.19) 0.99 APTT (25 - 37 SEC) 33 Hematology CBC w Diff NO MAN DIFF REQ WBC (4.8 - 10.8 /CUMM) 8.8 RBC (4.20 - 5.40 /CUMM) 3.78 L Hgb (12.0 - 16.0 G/DL) 12.6 Hct (37 - 47 %) 36.8 L MCV (81.0 - 99.0 FL) 97.1 MCH (27.0 - 31.0 PG) 33.2 H MCHC (33.0 - 37.0 G/DL) 34.2 RDW (11.5 - 14.5 %) 14.5 Plt Count (130 - 400 /CUMM) 240 MPV (7.4 - 10.4 FL) 7.8 Gran % (42.2 - 75.2 %) 49.4 Lymphocytes % (20.5 - 51.1 %) 37.5 Monocytes % (1.7 - 9.3 %) 9.0 Eosinophils % (0 - 5 %) 4.0 Basophils % (0.0 - 2.0 %) 0.1 Absolute Granulocytes (1.4 - 6.5 /CUMM) 4.4 Absolute Lymphocytes (1.2 - 3.4 /CUMM) 3.3 Absolute Monocytes (0.10 - 0.60 /CUMM) 0.8 H Absolute Eosinophils (0.0 - 0.7 /CUMM) 0.4 Absolute Basophils (0.0 - 0.2 /CUMM) 0 Imaging/Other Studies: Colonoscopy 2013 PREP: Fair to poor actually. PROCEDURE: Ms. Hilda Rod is a 73-year-old female who has a personal history of colon polyps and has had diverticulitis in the past. She presented today for a colonoscopy. She was taken to the GI suite, connected to the appropriate monitoring devices, and nasal cannula was placed to deliver O2 therapy. IV sedation was initiated, and then once the patient was comfortable visual inspection of the perineum was performed. She did have some minor external hemorrhoids. Digital rectal exam demonstrated no mass. Next, a well-lubricated , adult-size colonoscope was inserted transanally and advanced using insufflation as necessary until the cecum was intubated. Cecal intubation was without difficulty. Cecal intubation was confirmed by observing the appendiceal orifice and the ileocecal valve. Photos were taken of these structures. Next, I began to withdraw the scope, carefully viewing the mucosa as I did so. Patient had abundant liquidy brown stool throughout the colon. For the most part, I was able to irrigate and aspirate this away, but there was also some particulate matter in some areas where there were large dislodged fecaliths. So it is possible that some small polyps could have been missed in some areas. The patient had severe diverticulosis with many impacted diverticula throughout the colon, and some of these, once again, fecaliths had been dislodged and were free in the lumen of the colon. No other mucosal-based lesions were noted. In the distal rectum, the scope was retroflexed, and internal hemorrhoids were viewed. They appeared enlarged, grade 1-2, nonbleeding. The scope was then straightened, the air was aspirated, and the scope was retrieved. IMPRESSION: 1. Severe pandiverticulosis. 2. Mixed hemorrhoidal disease. 3. History of polyps. SERVICE DATE: 07/24/17 EXAM TYPE: CAT - CT ABD & PELVIS W IV CONTRAST; CTA CHEST-PULMONARY EMBOLISM EXAMINATION: CT CHEST PE STUDY CT ABDOMEN AND PELVIS WITH CONTRAST CLINICAL INFORMATION: Tachycardia. History of PE. COMPARISON: CT chest dated 01/22/2017 TECHNIQUE: Prior to contrast administration, noncontrast localization images were obtained. Subsequently, multidetector volumetric imaging was performed from the thoracic inlet to below the diaphragms following the administration of 95 mL Optiray 320 intravenous contrast. No contrast reaction reported. Sagittal, coronal, and MIP oblique sagittal reformatted images were obtained on the CT workstation, uploaded to PACS, and reviewed. CT abdomen and pelvis was also performed following CT chest and reformatted in coronal and sagittal planes. Total exam dose-length product: 1251.77 mGy-cm FINDINGS: CHEST VASCULATURE: The bolus timing on this study was acceptable for visualization of the pulmonary arterial tree. Filling defect right lower lobe pulmonary artery suspicious for acute pulmonary embolism (series 2 image 243). Adjacent postoperative changes. No additional emboli are identified. Atherosclerotic disease of the aorta and coronary arteries. LUNGS: Status post right lower lobectomy. Postoperative changes right hilum distal to the bronchus intermedius and at the level of the right lower lobe pulmonary artery and right lower lobe pulmonary vein Probable scarring/atelectatic change right hilar/infrahilar region Compression atelectasis adjacent to the effusion. PLEURA: Small right-sided effusion. There is also loculated effusion right paramediastinal region (series 4 image 14, medial aspect right middle lobe (series 4 image 26). MEDIASTINUM: Filling defect right anterolateral aspect left atrium. Adjacent soft tissue density likely representing scarring or adjacent lymphadenopathy (series 4 image 36-38). Right hilar adenopathy versus postoperative changes and scarring. Small lymph nodes noted elsewhere in the mediastinum. MUSCULOSKELETAL: Scoliosis and degenerative changes of the spine. EXAMINATION: CT ABDOMEN AND PELVIS WITH CONTRAST CLINICAL INFORMATION: Evaluate for diverticulitis.] Blood per rectum. COMPARISON: PET/CT most recent prior dated 11/08/[address] abdomen and pelvis dated 09/10/2013 FINDINGS: LIVER, GALLBLADDER, AND BILIARY TREE: Low-attenuation hepatic foci noted in the caudate lobe, segment 5 and segment 6 right hepatic lobe. Larger lesion in the caudate lobe measures 2.7 x 2.7 cm. Is compatible with cyst. Right hepatic lesions also likely represent cysts. Status post cholecystectomy. No evidence of biliary ductal dilatation. PANCREAS: Unremarkable. SPLEEN: Unremarkable. ADRENAL GLANDS: Unremarkable. KIDNEYS AND URETERS: Low-attenuation cortical lesion lateral aspect left kidney compatible with cyst. Additional smaller low-attenuation lesion mid left kidney too small to be well-characterized. BLADDER: Unremarkable. GASTROINTESTINAL TRACT: Moderate colonic diverticulosis. No definite evidence of acute diverticulitis. Moderate fecal material noted throughout the large bowel and rectum. There is incomplete distention versus wall thickness noted in the large bowel involving the transverse, descending and sigmoid colon. Differential possibility includes mild colitis. No evidence of bowel obstruction. No acute bowel pathology appreciated. ABDOMINAL WALL: No significant hernia is appreciated. LYMPH NODES: Normal. VASCULAR: Atherosclerotic disease with intimal calcification of the aorta and aortic branches. PELVIC VISCERA: Unremarkable. OSSEOUS STRUCTURES: Degenerative changes. IMPRESSION: 1. Interval postoperative changes with right lower lobectomy. 2. Filling defect distal right main pulmonary artery adjacent to the postoperative change. The appearance is suspicious for pulmonary embolism. Filling defect also identified in the anterior aspect left atrium adjacent to the postoperative changes involving the right lower lobe pulmonary vein. 3. No new nodules identified. 4. Low right lung volume. Right-sided effusion including loculated fluid right paramediastinal region and medial aspect right base. 5. Small mediastinal lymph nodes. Soft tissue density right hilar region may represent scarring versus lymphadenopathy. 6. Colonic diverticulosis. No definite evidence of acute diverticulitis. 7. Incomplete distention versus mild colonic wall thickness involving transverse colon, descending and sigmoid colon. This especially evident in the distal descending/sigmoid colon (series 602 image 40). Colitis is included in the differential possibility. Direct visualization recommended. 8. Hepatic and left renal cysts. VTE: Positive Assessment/Plan Assessment/Recommendations: Assessment: Ms. Rod is a 76-year-old female with multiple myeloma and a history of breast cancer and PEs who presents with painless rectal bleeding most likely secondary to a self-limited diverticular bleed. She has not had any further bleeding since this morning and her hemoglobin is currently 12 so I'm hopeful that the bleeding is currently stopped. Her last colonoscopy was in 2013 and as there was only a fair prep on that examination and as she does have a history of adenomatous polyps on a colonoscopy in 2007 I do feel it would be reasonable to repeat the colonoscopy now to rule out an occult malignancy as a possible cause of the bleeding and also to assess for any active bleeding or high risk lesions that may benefit from endoscopic therapy. Other potential etiologies of the rectal bleeding is bleeding from hemorrhoids, AVMs, a dieulafoys lesion, or colitis, but the latter possibility is less likely without any significant abdominal pain and there was no colitis on her CAT scan. Of note, she does have history of a PE and she did have a filling defect on her CT angiogram so if this is felt by pulmonary to be a significant lesion requiring anticoagulation it may be safer to just proceed with an IVC filter. Recommendations: 1. Follow CBCs every 8 hours and transfuse as needed to keep her hemoglobin greater than 8. 2. Maintain 2 large-bore IVs at all times. 3. Notify GI for signs of hemodynamically significant GI bleeding. 4. Keep on a full liquid diet with nothing red. 5. After a liquid dinner would administer 2 Dulcolax tablets followed by 1 gallon of GoLYTELY would keep nothing by mouth after the bowel prep. 6. Will tentatively plan to pursue a diagnostic/therapeutic colonoscopy in the a.m., but will do sooner if hemodynamically significant bleeding ensues the interim time period. 7. If anticoagulation is indicated for a PE would recommend proceeding with an IVC filter and further recommendations concerning anticoagulation will be made pending the results of tomorrows colonoscopy. Dr. Serrano will resume her GI care in the a.m. Problem List: 1. Lower GI bleed 2. Pulmonary embolism Copies To: Alma LOPEZ,Da Truong. Consult Acknowledgment - Thank you for your consult request.
--- NOTE | 2017-07-24 15:41 | ULTRASOUND REPORT ---
EXAMINATION: US TRIPLEX OF LOWER EXTREMITIES, BILATERAL CLINICAL INFORMATION: Bilateral lower extremity swelling COMPARISON: None TECHNIQUE: Color-flow triplex imaging with spectral analysis and compression Doppler were performed on the lower extremities. FINDINGS: Respiratory variation, normal compression and augmented flow are noted throughout the lower extremities. The visualized common femoral vein, superficial femoral vein, profunda femoral vein, popliteal vein and midcalf peroneal and posterior tibial venous segments show no evidence of deep venous thrombosis. There is no Montes De Oca's cyst. IMPRESSION: No evidence of deep venous thrombosis involving the lower extremities.
[2017-07-24 17:11] VITALS: BP 162/84
--- NOTE | 2017-07-24 19:27 | Cons- Pulmonary ---
General Information and HPI Consulting Request Date of Consult: 07/24/17 Requested By: ed History of Present Illness: Patient is a 76-year-old female with past medical history of colonic developed cholelithiasis and diverticulitis, hypertension, hyperlipidemia, multiple myeloma on Cytoxan and steroids, breast cancer status post chemotherapy in remission, remote history of PE (? side) following a right knee replacement surgery in 2007, recent right lower lobectomy secondary to stage I right lung cancer who presents with bright red blood per rectum this morning while having a bowel movement. She was in her usual state of health until last night when she noticed a small amount of browish/red stool which she thought nothing of. This morning after she had had her morning coffee, she developed some abd. rumbling and felt the need to move her bowels urgently and had 1 episode of large volume loose stool that was bright red. She has a hx of external hemorrhoids that were removed many years ago. She takes a daily baby aspirin or NSAIDs, only takes acetraminophen as needed for pain. She is a former smoker and denies alcohol use. She endorses lightheadness but no dizziness, pre-syncope or falls. She denies any abdominal pain or discomfort, nausea without vomiting, chest pain or shortness of breath. She had an upper endoscopy/colonoscopy in 2013 that revealed severe pandiverticulosis, mild erosive gastritis, mixed hemorrhoidal disease and a duodenal polyp that was removed. She has however been taking steroids along with Cytoxan for multiple myeloma but this was recently discontinued prior to her recent lobectomy on June 24 2017 at [facility] and because her MM was not responding to it any longer. She is to start a new regimen and will be following up with her oncologist Dr. Tati Brown at [facility]. She recived a dose of IVIG last week and her last dose of cytoxan was on June 17. She is on augmentin for sinus infection, was to complete her lost dose tomorrow- friday. She takes acyclovir daily for viral suppression due to a positive viral nasal swab. 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 [id number] (stage I) ER/MT positive, HER-2/radha negative adenocarcinoma of the right breast. 2. Multiple myeloma (11/2012), now active MM as of 09/2015 3. Stage IA ([id number]) lung adenocarcinoma s/p VATS RLL lobectomy with LN dissection on 06/24/2017 CURRENT THERAPY: 1. Ixazomib 4 mg weekly, cytoxan 50 mg daily, and dexamethasone 20mg weekly 2. Zometa monthly 3. Acyclovir 400 mg twice a day 4. IVIG monthly, started 08/2016 PRIOR THERAPY: 1. Lumpectomy, 11/2004. 2. EBRT, 01/2005. 3. Arimidex, 03/2005 through 12/2007. 4. Tamoxifen, 12/2007 through 08/2010. 5. Lenolidamide/Dexamethasone (05/13/2013-02/2014). 6. Lenolidamide maintenance (02/2014-06/2014). 7. Lenolidamide 15 mg days 1-21 every 28 days (06/2014-09/17/15). Allergies/Medications Allergies: Coded Allergies: methocarbamol (Severe, PARALYSIS FROM WAIST DOWN 07/24/17) STATINS (Intermediate, BODY ACHES 02/28/13) Home Med List: Acyclovir 400 MG TABLET 1 TAB PO DAILY CANCER (Reported) Amoxicillin/Clavulanate Potass (Amox-Clav 875-125 MG Tablet) 875 MG-125 MG TABLET 1 TAB PO BID ANTIBIOTIC, INFECTION (Reported) Aspirin (Ecotrin*) 81 MG TABLET.DR 1 TAB PO DAILY PE (Reported) Atorvastatin Calcium (Lipitor) 10 MG TABLET 1 TAB PO DAILY CHOLESTEROL ( Reported) Bevacizumab (Avastin) 25 MG/ML VIAL 1 INJ INJ Q30D EYE (Reported) Calcium Citrate 250 MG CALCIUM TABLET 50 MG PO DAILY SUPPLEMENT (Reported) Cholecalciferol (Vitamin D3) (Vitamin D) 2,000 UNIT TABLET 1 TAB PO DAILY VITAMIN SUPPORT (Reported) Cyanocobalamin (Vitamin B-12) 1,000 MCG TABLET 1 TAB PO DAILY VITAMIN SUPPORT (Reported) Light Mineral Oil/Min Oil/Pf (Retaine Mgd Eye Drops) 0.5 %-0.5 % DROPERETTE 1 DROP OU DAILY EYE (Reported) Losartan Potassium 50 MG TABLET 1 TAB PO DAILY HEART (Reported) Metoprolol Succinate 25 MG TAB 1 TAB PO DAILY HEART (Reported) Multivits,Ca,Minerals/Iron/FA (Women's Daily Caplet) 27 MG IRON-400 MCG TABLET 1 TAB PO DAILY VITAMIN SUPPORT (Reported) Mv-Mn/Lutein/Zeax/Bilber/Hb277 (Macular Health Formula Capsule) 5 MG-1 MG-7.5 MG CAPSULE 1 TAB PO DAILY EYE (Reported) Olopatadine HCl (Pazeo) 0.7 % DROPS 1 DROP OU DAILY EYE (Reported) Past History Travel History Traveled to [place] past 21 day No Medical History Blood Transfusion Hx: Yes Neurological: NONE EENT: sinusitis Cardiovascular: hypertension, hyperlipidemia Respiratory: R LUNG BASE REMOVED Gastrointestinal: diverticulitis, hiatal hernia Hepatic: NONE Renal: NONE Musculoskeletal: NONE Psychiatric: NONE Endocrine: ? THYROID NODULE Blood Disorders: PE (2007) S/P KNEE SURG Cancer(s): breast cancer, R LUNG CA, MULTIPLE MYELOMA BOAT DECKHAND/Reproductive: NONE Surgical History Surgical History: appendectomy, cholecystectomy, right lower lung removed Family History Relations & Conditions If Any: MOTHER FH: diabetes mellitus FH: heart disease BROTHER FH: bladder cancer UNCLE FH: diabetes mellitus FATHER FH: stroke, Onset: 25-30. BROTHER FH: diabetes mellitus Psychosocial History Where Do You Live? Home Who Do You Live With? self Services at Home: None Smoking Status: Former Smoker ETOH Use: denies use Illicit Drug Use: denies illicit drug use Living Will? yes Power of Utility Assembler/HCP? yes Name of POA/HCP: Rachel perez and Tu Rod (kids) Functional Ability ADLs Independent: dressing, eating, toileting, bathing. Ambulation: independent IADLs Independent: shopping, housework, finances, food prep, telephone, transportation , medication admin. 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 Exam & Diagnostic Data Last 24 Hrs of Vital Signs/I&O Vital Signs Date Time Temp Pulse Resp B/P B/P Pulse O2 O2 Flow FiO2 Mean Ox Delivery Rate 07/24 1711 98.3 84 16 162/84 94 Room Air 07/24 1544 98.4 77 18 169/77 97 Room Air 07/24 1432 98.6 79 18 136/88 98 Room Air 07/24 1121 84 20 147/69 93 Room Air 07/24 0921 98 Room Air 07/24 0900 98.6 78 18 154/78 98 Room Air 07/24 0808 96.5 118 18 169/91 97 Room Air Room Air Intake & Output 07/24 1600 07/24 0800 07/24 0000 Intake Total 0 Output Total Balance 0 Intake, Oral 0 Patient 212 lb Weight Last 48 Hrs of Labs/Bryon: Laboratory Tests 07/24/17 1118: Lactic Acid Cancelled 07/24/17 0935: Urine Color YEL, Urine Clarity CLEAR, Urine pH 6.0, Ur Specific Advance <= 1.005 , Urine Protein NEG, Urine Ketones NEG, Urine Nitrite NEG, Urine Bilirubin NEG, Urine Urobilinogen 0.2, Ur Leukocyte Esterase NEG, Ur Microscopic SEDIMENT EXAMINED, Urine RBC 1-3, Ur Epithelial Cells RARE, Urine Hemoglobin SMALL H, Urine Glucose NEG 07/24/17 0829: Anion Gap 14, Estimated GFR > 60, BUN/Creatinine Ratio 15.0, Glucose 110 H, Lactic Acid 1.5, Calcium 9.6, Total Bilirubin 0.6, AST 28, ALT 38, Alkaline Phosphatase 71, Troponin I < 0.01, Total Protein 8.0, Albumin 4.2, Globulin 3.8, Albumin/Globulin Ratio 1.1, TSH 1.730, Thyroxine (T4) 9.6, PT 10.8, INR 0.99, APTT 33, CBC w Diff NO MAN DIFF REQ, RBC 3.78 L, MCV 97.1, MCH 33.2 H, MCHC 34.2, RDW 14.5, MPV 7.8, Gran % 49.4, Lymphocytes % 37.5, Monocytes % 9.0, Eosinophils % 4.0, Basophils % 0.1, Absolute Granulocytes 4.4, Absolute Lymphocytes 3.3, Absolute Monocytes 0.8 H, Absolute Eosinophils 0.4, Absolute Basophils 0 Assessment/Plan Impression/Plan: ONC history RECENT ONC history and rx history 1. [id number] (stage I) ER/MT positive, HER-2/radha negative adenocarcinoma of the right breast. 2. Multiple myeloma (11/2012), now active MM as of 09/2015 3. Stage IA ([id number]) lung adenocarcinoma s/p VATS RLL lobectomy with LN dissection on 06/24/2017/PDL1 neg, KRAS mutation positive CURRENT THERAPY: 1. Ixazomib 4 mg weekly, cytoxan 50 mg daily, and dexamethasone 20mg weekly 2. Zometa monthly 3. Acyclovir 400 mg twice a day 4. IVIG monthly, started 08/2016 did get a dose few days ago PRIOR THERAPY: 1. Lumpectomy, 11/2004. 2. EBRT, 01/2005. 3. Arimidex, 03/2005 through 12/2007. 4. Tamoxifen, 12/2007 through 08/2010. 5. Lenolidamide/Dexamethasone (05/13/2013-02/2014). 6. Lenolidamide maintenance (02/2014-06/2014). 7. Lenolidamide 15 mg days 1-21 every 28 days (06/2014-09/17/15). General Appearance: well developed/nourished, no apparent distress, alert, awake , comfortable Head: atraumatic, normal appearance Eyes: Bilateral: normal appearance. Ears, Nose, Throat: normal pharynx, normal ENT inspection, hearing grossly normal Neck: normal inspection, supple, full range of motion Respiratory: normal breath sounds Cardiovascular: regular rate/rhythm Gastrointestinal: normal bowel sounds, soft, non-tender, no organomegaly Rectal: deferred Back: normal inspection, normal range of motion Skin: intact, normal color, warm/dry IMPRESSION: 1. Interval postoperative changes with right lower lobectomy. 2. Filling defect distal right main pulmonary artery adjacent to the postoperative change. The appearance is suspicious for pulmonary embolism. Filling defect also identified in the anterior aspect left atrium adjacent to the postoperative changes involving the right lower lobe pulmonary vein. 3. No new nodules identified. 4. Low right lung volume. Right-sided effusion including loculated fluid right paramediastinal region and medial aspect right base. 5. Small mediastinal lymph nodes. Soft tissue density right hilar region may represent scarring versus lymphadenopathy. 6. Colonic diverticulosis. No definite evidence of acute diverticulitis. 7. Incomplete distention versus mild colonic wall thickness involving transverse colon, descending and sigmoid colon. This especially evident in the distal descending/sigmoid colon (series 602 image 40). Colitis is included in the differential possibility. Direct visualization recommended. 8. Hepatic and left renal cysts. VTE: Positive IMPRESSION This is a lady with complicated history with multiple myeloma undergoing chemotherapy, CMV retinitis, moderate COPD, recent right lower lobectomy for stage I lung cancer, previous breast cancer with multiple treatment as noted above, obesity, ongoing chemotherapy as noted above, IgG deficient hence immunosuppressed, osteoporosis, GERD, abnormally enlarged thyroid which needs evaluation in the future, previous history of pulmonary embolism when she had a knee replacement, now comes in with * Significant lower GI bleed which started this morning with previous history of polyps needs evaluation. GI evaluation noted. * CT scan suggestive of a filling defect in the distal right pulmonary artery, associated with filling defect noted in the anterior left atrium. I am not too sure whether this is a pulmonary embolism. This may be a postoperative change as she just had right lower lobectomy. However this needs to be investigated further, probably with another CTA after she is fluid resuscitated, once the current contrast is washed off. Patient does not have lower extremity DVT. Hence not a candidate for any IVC filter. Obviously due to GI bleed she is not a candidate for any anticoagulation. * Recent right lower lobectomy for T1 adenocarcinoma of the lung done 2 weeks ago and Pathology as noted above * Remote pulmonary embolism after she had a knee replacement many years ago. No history suggestive of a hereditary thrombophilia. However patient is high risk for venous thromboembolism due to multiple malignancies with ongoing multiple myeloma * Multiple myeloma now on active treatment with chemotherapy as noted above. 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 No clinical evidence suggestive of infection * Significant COPD with no exacerbation * Hypertension, hyperlipidemia, breast cancer. Patient does have a goiter which needs evaluation as outpatient Recommendation * Gentle IV hydration * No anticoagulation necessary * Get an echocardiogram will assess right heart strain * No indication for IVC filter as she does not have a DVT * GI evaluation noted follow-up hemoglobin and hematocrit * Hold aspirin, continue Augmentin for 1 more day, continue other medications * We'll repeat CT scan of the chest pulmonary embolism protocol in the future to evaluate her for PE. Due to abnormal chest x-ray she is not a great candidate for a VQ scan. She would not be a candidate for anticoagulation for the next few days and this does not need to be done tomorrow as she is clinically stable * Watch her in telemetry * Follow CBCs * Watch blood pressure and heart rate, We will follow Consult Acknowledgment - Thank you for your consult request.
[2017-07-24 21:43] VITALS: BP 142/74
--- NOTE | 2017-07-24 22:29 | Admission Certification ---
Admission Certification Certification Statement - As attending physician, I certify that at the time of - admission, based on clinical presentation, severity of - symptoms, need for further diagnostic testing and - therapeutic interventions, and risk of adverse outcomes - without in-hospital treatment, in my clinical assessment, - this patient requires an acute hospital stay for a minimum - of two nights or longer. I have also considered psychsocial - factors such as support system, advanced age, financial - issues, cognitive issues, and failed out-patient treatments, - past re-admission history, safety of patient, and lack of - compliance as applicable. Specific rationale supporting this admission is: The patient presents with acute lower gastrointestinal bleeding (?diverticular vs hemorrhoidal) and possible RLL pulmonary embolism on CTPA. Needs admit to telemetry for close hemodynamic monitoring, serial H/H, GI and Pulmonary consults. Will need colonoscopy.
[2017-07-25 00:08] LABS: ABSOLUTE BASOPHIL COUNT 0 /CUMM (0.0-0.2); ABSOLUTE EOSINOPHIL COUNT 0.3 /CUMM (0.0-0.7); ABSOLUTE GRANULOCYTE CT 3.2 /CUMM (1.4-6.5); ABSOLUTE LYMPH COUNT 1.6 /CUMM (1.2-3.4); ABSOLUTE MONOCYTE COUNT 0.8 /CUMM (0.10-0.60); BASOPHIL % 0.2 % (0.0-2.0); EOSINOPHIL % 5.6 % (0-5); GRANULOCYTE % 53.3 % (42.2-75.2); HEMATOCRIT 32.7 % (37-47); MEAN CORPUSCULAR HGB 33.7 PG (27.0-31.0); MEAN CORPUSCULAR HGB CONC 34.8 G/DL (33.0-37.0); PLATELET COUNT 202 /CUMM (130-400); RED BLOOD CELL CT 3.37 /CUMM (4.20-5.40); WHITE BLOOD CELL COUNT 5.9 /CUMM (4.8-10.8)
[2017-07-25 06:53] VITALS: BP 124/76
[2017-07-25 08:08] LABS: ABSOLUTE BASOPHIL COUNT 0 /CUMM (0.0-0.2); ABSOLUTE EOSINOPHIL COUNT 0.3 /CUMM (0.0-0.7); ABSOLUTE GRANULOCYTE CT 3.2 /CUMM (1.4-6.5); ABSOLUTE MONOCYTE COUNT 0.7 /CUMM (0.10-0.60); BASOPHIL % 0.3 % (0.0-2.0); EOSINOPHIL % 4.9 % (0-5); GRANULOCYTE % 50.8 % (42.2-75.2); HEMATOCRIT 32.8 % (37-47); MEAN CORPUSCULAR HGB CONC 33.6 G/DL (33.0-37.0); MEAN CORPUSCULAR VOLUME 98.1 FL (81.0-99.0); MEAN PLATELET VOLUME 8.5 FL (7.4-10.4); PLATELET COUNT 211 /CUMM (130-400); RBC DISTRIBUTION WIDTH 14.3 % (11.5-14.5); RED BLOOD CELL CT 3.34 /CUMM (4.20-5.40); WHITE BLOOD CELL COUNT 6.2 /CUMM (4.8-10.8)
--- NOTE | 2017-07-25 08:10 | PN- Housestaff ---
Stephanie LOPEZ,Amber 07/25/17 0808: Subjective Follow-up For: 1. Right lower lobe pulmonary embolism 2. Acute lower GI bleed 3. Multiple myeloma Complaints: no complaints Tele-Events Since Last Visit: NSR 79-100 Review of Systems Constitutional: Reports: no symptoms. Objective Last 24 Hrs of Vital Signs/I&O Vital Signs Date Time Temp Pulse Resp B/P B/P Pulse O2 O2 Flow FiO2 Mean Ox Delivery Rate 07/25 0653 98.2 78 18 124/76 95 Room Air 07/24 2143 98.0 84 18 142/74 95 Room Air 07/24 2135 85 142/74 07/24 1711 98.3 84 16 162/84 94 Room Air 07/24 1544 98.4 77 18 169/77 97 Room Air 07/24 1432 98.6 79 18 136/88 98 Room Air 07/24 1121 84 20 147/69 93 Room Air 07/24 0921 98 Room Air 07/24 0900 98.6 78 18 154/78 98 Room Air Intake & Output 07/25 1600 07/25 0800 07/25 0000 Intake Total 1080 Output Total Balance 1080 Intake, Oral 1080 Number 3 1 Bowel Movements Patient 208 lb Weight Weight Bed scale Measurement Method Physical Exam General Appearance: Alert, Oriented X3, Cooperative, No Acute Distress HEENT: Mucous Membr. moist/pink Cardiovascular: Regular Rate, Normal S1, Normal S2 Lungs: Clear to Auscultation, decreased AE on rt LL Abdomen: Soft, No Tenderness Extremities: No Edema Last 24 Hrs of Lab/Bryon Results Last 24 Hrs of Labs/Mics: Laboratory Tests 07/25/17 0625: Anion Gap 11, Estimated GFR > 60, BUN/Creatinine Ratio 11.4, CBC w Diff NO MAN DIFF REQ, RBC 3.34 L, MCV 98.1, MCH 33.0 H, MCHC 33.6, RDW 14.3, MPV 8.5, Gran % 50.8, Lymphocytes % 32.4, Monocytes % 11.6 H, Eosinophils % 4.9, Basophils % 0.3, Absolute Granulocytes 3.2, Absolute Lymphocytes 2.0, Absolute Monocytes 0.7 H, Absolute Eosinophils 0.3, Absolute Basophils 0 07/24/17 2320: CBC w Diff NO MAN DIFF REQ, RBC 3.37 L, MCV 97.0, MCH 33.7 H, MCHC 34.8, RDW 14.0, MPV 8.0, Gran % 53.3, Lymphocytes % 27.5, Monocytes % 13.4 H, Eosinophils % 5.6 H, Basophils % 0.2, Absolute Granulocytes 3.2, Absolute Lymphocytes 1.6, Absolute Monocytes 0.8 H, Absolute Eosinophils 0.3, Absolute Basophils 0 Lines/Diet/Fluids Lines: peripheral lines Assessment/Plan Assessment: Patient is a 76-year-old female with past medical history of colonic developed cholelithiasis and diverticulitis, CMV retinitis, macula degeneration, hypertension, hyperlipidemia, multiple myeloma on Cytoxan and steroids, Rt sided breast cancer status post chemotherapy in remission, remote history of PE (? side) following a right knee replacement surgery in 2007, recent right lower lobectomy secondary to stage I right lung cancer who presents with bright red blood per rectum this morning while having a bowel movement. She is admitted to the telemetry unit, below are the problem being addressed. 1. Right lower lobe pulmonary embolism-unlcear if this is an artifact due to recent surgery in the area, an old PE or an acute PE. She has risk factors of recent surgery in the past 4 weeks/decreased mobility due to hospitalization and cancer 2. Acute lower GI bleed-Could be due to diverticulosis vs interanl hemmorrhoids. Less likely an ulcer from prolonged steroid use 3. History of multiple myeloma-treated with cytoxan and steroids 4. History of right lower lobe lung cancer status post lobectomy in May 2017 5. History of breast cancer in 2004 s/p resection and chemo. In remission 6. History of hypertension, hyperlipidemia 7. Hx of previous PE following a knee replacement surgery in 2007 Plan -Plan is for colonoscopy today -Continue to hold off anticoagulation for now -Check CBC q6-8hrs; transfuse if <8 -Venous dopplers of bilateral lower extremities negative for a DVT -Echocardiogram pending -Will get VQ scan today to r/o PE -Continue her impt home medications -Hold aspirin for now; avoid NSAIDS or other blood thinners for now -Alps for DVT -FC -NPO for colonoscopy Problem List: 1. Lower GI bleed Pain Ratin Pain Location: na Pain Goal: Remain pain free Pain Plan: na Tomorrow's Labs & Rationales: cbc Cristian To MD 07/25/17 2214: Attending MD Review Statement Attending Statement Attending MD Statement: examined this patient, discuss w/resident/PA/TELE GROUT SEWER LINE REPAIRER, agreed w/resident/PA/TELE GROUT SEWER LINE REPAIRER, discussed with family, reviewed EMR data (avail), discussed with nursing, discussed with case mgmt, reviewed images, amended to note Attending Assessment/Plan: The patient was seen and discussed with house staff. Appreciate Pulmonary and GI input. Lung scan very low probability of PE. Colonoscopy suggesting hemorrhoidal bleed. Diet advanced as suggested by GI. Continue to monitor H/H and observe for bleeding.
--- NOTE | 2017-07-25 11:08 | PN- Pulmonary ---
Subjective HPI/Critical Care Issues: Doing ok Not tachy or hypoxic Objective Current Medications: Current Medications Sig/Steven Start time Last Medication Dose Route Stop Time Status Admin Acetaminophen 650 MG Q6P PRN 07/24 1515 AC PO Acyclovir 400 MG DAILY 07/25 0900 AC 07/25 PO 07/26 0859 0945 Amoxicillin/ 875 MG BID 07/24 2099 AC 07/25 Clavulanate Potassium PO 07/25 2100 0945 Atorvastatin Calcium 10 MG 07/24 AC 07/24 PO 2130 Bisacodyl 10 MG QPM 07/24 2100 DC 07/24 PO 07/24 210 2130 Cholecalciferol 2,000 IU DAILY 07/25 0900 AC PO Losartan Potassium 50 MG 07/24 AC 07/24 PO 2134 Metoprolol Succinate 25 MG DAILY 07/25 0900 AC 07/25 PO 0951 Multivitamins 1 TAB DAILY 07/25 09 AC PO Polyethylene Glycol 1 GAL QPM 07/24 2099 DC 07/24 PO 07/24 2100 2130 Sodium Chloride 1,000 ML Q10H 07/25 0800 AC 07/25 IV 0944 Sodium Chloride 1,000 ML BOLUS ONE 07/24 0945 DC 07/24 IV 07/24 1144 0945 Vital Signs & I&O Last 24 Hrs of Vitals and I&O: Vital Signs Date Time Temp Pulse Resp B/P B/P Pulse O2 O2 Flow FiO2 Mean Ox Delivery Rate 07/25 0951 78 124/76 07/25 0653 98.2 78 18 124/76 95 Room Air 07/24 2143 98.0 84 18 142/74 95 Room Air 07/24 2135 85 142/74 07/24 1711 98.3 84 16 162/84 94 Room Air 07/24 1544 98.4 77 18 169/77 97 Room Air 07/24 1432 98.6 79 18 136/88 98 Room Air 07/24 1121 84 20 147/69 93 Room Air Intake & Output 07/25 1600 07/25 0800 07/25 0000 Intake Total 1080 Output Total Balance 1080 Intake, Oral 1080 Number 3 1 Bowel Movements Patient 208 lb Weight Weight Bed scale Measurement Method Impression/Plan Impression/Plan Impression/Plan: ONC history RECENT ONC history and rx history 1. [id number] (stage I) ER/WV positive, HER-2/radha negative adenocarcinoma of the right breast. 2. Multiple myeloma (11/2012), now active MM as of 09/2015 3. Stage IA ([id number]) lung adenocarcinoma s/p VATS RLL lobectomy with LN dissection on 06/24/2017/PDL1 neg, KRAS mutation positive CURRENT THERAPY: 1. Ixazomib 4 mg weekly, cytoxan 50 mg daily, and dexamethasone 20mg weekly 2. Zometa monthly 3. Acyclovir 400 mg twice a day 4. IVIG monthly, started 08/2016 did get a dose few days ago PRIOR THERAPY: 1. Lumpectomy, 11/2004. 2. EBRT, 01/2005. 3. Arimidex, 03/2005 through 12/2007. 4. Tamoxifen, 12/2007 through 08/2010. 5. Lenolidamide/Dexamethasone (05/13/2013-02/2014). 6. Lenolidamide maintenance (02/2014-06/2014). 7. Lenolidamide 15 mg days 1-21 every 28 days (06/2014-09/17/15). General Appearance: well developed/nourished, no apparent distress, alert, awake , comfortable Head: atraumatic, normal appearance Eyes: Bilateral: normal appearance. Ears, Nose, Throat: normal pharynx, normal ENT inspection, hearing grossly normal Neck: normal inspection, supple, full range of motion Respiratory: normal breath sounds Cardiovascular: regular rate/rhythm Gastrointestinal: normal bowel sounds, soft, non-tender, no organomegaly Rectal: deferred Back: normal inspection, normal range of motion Skin: intact, normal color, warm/dry IMPRESSION: 1. Interval postoperative changes with right lower lobectomy. 2. Filling defect distal right main pulmonary artery adjacent to the postoperative change. The appearance is suspicious for pulmonary embolism. Filling defect also identified in the anterior aspect left atrium adjacent to the postoperative changes involving the right lower lobe pulmonary vein. 3. No new nodules identified. 4. Low right lung volume. Right-sided effusion including loculated fluid right paramediastinal region and medial aspect right base. 5. Small mediastinal lymph nodes. Soft tissue density right hilar region may represent scarring versus lymphadenopathy. 6. Colonic diverticulosis. No definite evidence of acute diverticulitis. 7. Incomplete distention versus mild colonic wall thickness involving transverse colon, descending and sigmoid colon. This especially evident in the distal descending/sigmoid colon (series 602 image 40). Colitis is included in the differential possibility. Direct visualization recommended. 8. Hepatic and left renal cysts. VTE: Positive IMPRESSION This is a lady with complicated history with multiple myeloma undergoing chemotherapy, CMV retinitis, moderate COPD, recent right lower lobectomy for stage I lung cancer, previous breast cancer with multiple treatment as noted above, obesity, ongoing chemotherapy as noted above, IgG deficient hence immunosuppressed, osteoporosis, GERD, abnormally enlarged thyroid which needs evaluation in the future, previous history of pulmonary embolism when she had a knee replacement, now comes in with * Significant lower GI bleed which started this morning with previous history of polyps needs evaluation. GI evaluation noted. * CT scan suggestive of a filling defect in the distal right pulmonary artery, associated with filling defect noted in the anterior left atrium. I am not too sure whether this is a pulmonary embolism. This may be a postoperative change as she just had right lower lobectomy. However this needs to be investigated further, probably with another CTA after she is fluid resuscitated, once the current contrast is washed off. Patient does not have lower extremity DVT. Hence not a candidate for any IVC filter. Obviously due to GI bleed she is not a candidate for any anticoagulation. * Rule out LA clot as noted in the ct will eval * Recent right lower lobectomy for T1 adenocarcinoma of the lung done 2 weeks ago and Pathology as noted above * Remote pulmonary embolism after she had a knee replacement many years ago. No history suggestive of a hereditary thrombophilia. However patient is high risk for venous thromboembolism due to multiple malignancies with ongoing multiple myeloma * Multiple myeloma now on active treatment with chemotherapy as noted above. 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 No clinical evidence suggestive of infection * Significant COPD with no exacerbation * Hypertension, hyperlipidemia, breast cancer. Patient does have a goiter which needs evaluation as outpatient Recommendation * Gentle IV hydration * No anticoagulation necessary * Get an echocardiogram will assess right heart strain, and left atrial mustapha * No indication for IVC filter as she does not have a DVT * GI evaluation noted follow-up hemoglobin and hematocrit * Hold aspirin, * Vq this afternoon * Watch her in telemetry * Follow CBC * Watch blood pressure and heart rate, We will follow
--- NOTE | 2017-07-25 12:10 | Cons- Cardiology ---
General Information and HPI Consulting Request Date of Consult: 07/25/17 Requested By: Cristian To MD Reason for Consult: Abnormal CT scan Source of Information: patient, old records History of Present Illness: This is a pleasant 76-year-old female with a past medical history of multiple myeloma on chemotherapy, CMV retinitis, hypertension, hyperlipidemia, COPD, lung cancer with recent right lower lobe lobectomy, history of pulmonary embolism possibly 10 years ago in the setting of knee replacement, history of breast cancer, and osteoporosis who presented to [facility] with a chief complaint of bright red blood per rectum. She denied any associated chest pain, dyspnea, palpitations, syncope, slurring of speech, or worsening lower extremity edema. Denies any history of major cardiac pathology in the past. Allergies/Medications Allergies: Coded Allergies: methocarbamol (Severe, PARALYSIS FROM WAIST DOWN 07/24/17) STATINS (Intermediate, BODY ACHES 02/28/13) Home Med List: Acyclovir 400 MG TABLET 1 TAB PO DAILY CANCER (Reported) Amoxicillin/Clavulanate Potass (Amox-Clav 875-125 MG Tablet) 875 MG-125 MG TABLET 1 TAB PO BID ANTIBIOTIC, INFECTION (Reported) Aspirin (Ecotrin*) 81 MG TABLET.DR 1 TAB PO DAILY PE (Reported) Atorvastatin Calcium (Lipitor) 10 MG TABLET 1 TAB PO DAILY CHOLESTEROL ( Reported) Bevacizumab (Avastin) 25 MG/ML VIAL 1 INJ INJ Q30D EYE (Reported) Calcium Citrate 250 MG CALCIUM TABLET 50 MG PO DAILY SUPPLEMENT (Reported) Cholecalciferol (Vitamin D3) (Vitamin D) 2,000 UNIT TABLET 1 TAB PO DAILY VITAMIN SUPPORT (Reported) Cyanocobalamin (Vitamin B-12) 1,000 MCG TABLET 1 TAB PO DAILY VITAMIN SUPPORT (Reported) Light Mineral Oil/Min Oil/Pf (Retaine Mgd Eye Drops) 0.5 %-0.5 % DROPERETTE 1 DROP OU DAILY EYE (Reported) Losartan Potassium 50 MG TABLET 1 TAB PO DAILY HEART (Reported) Metoprolol Succinate 25 MG TAB 1 TAB PO DAILY HEART (Reported) Multivits,Ca,Minerals/Iron/FA (Women's Daily Caplet) 27 MG IRON-400 MCG TABLET 1 TAB PO DAILY VITAMIN SUPPORT (Reported) Mv-Mn/Lutein/Zeax/Bilber/Hb277 (Macular Health Formula Capsule) 5 MG-1 MG-7.5 MG CAPSULE 1 TAB PO DAILY EYE (Reported) Olopatadine HCl (Pazeo) 0.7 % DROPS 1 DROP OU DAILY EYE (Reported) Current Medications: Current Medications Sig/Steven Start time Last Medication Dose Route Stop Time Status Admin Acetaminophen 650 MG Q6P PRN 07/24 1515 AC PO Acyclovir 400 MG DAILY 07/25 0900 AC 07/25 PO 07/26 0859 0945 Amoxicillin/ 875 MG BID 07/24 2099 AC 07/25 Clavulanate Potassium PO 07/25 2100 0945 Atorvastatin Calcium 10 MG 2100 07/24 2099 AC 07/24 PO 2130 Bisacodyl 10 MG QPM 07/24 2100 DC 07/24 PO 07/24 2100 2130 Cholecalciferol 2,000 IU DAILY 07/25 0900 AC PO Losartan Potassium 50 MG 07/24 AC 07/24 PO 213 Metoprolol Succinate 25 MG DAILY 07/25 0900 AC 07/25 PO 0951 Multivitamins 1 TAB DAILY 07/25 0900 AC PO Polyethylene Glycol 1 GAL QPM 07/24 2099 DC 07/24 PO 07/24 2100 2130 Sodium Chloride 1,000 ML Q10H 07/25 0800 AC 07/25 IV 0944 Review of Systems Review of Systems: Review of systems as per HPI. The remainder of a 10 point review of systems was reviewed and was otherwise negative. Past History Travel History Traveled to [place] past 21 day No Medical History Blood Transfusion Hx: Yes Neurological: NONE EENT: sinusitis Cardiovascular: hypertension, hyperlipidemia Respiratory: R LUNG BASE REMOVED Gastrointestinal: diverticulitis, hiatal hernia Hepatic: NONE Renal: NONE Musculoskeletal: NONE Psychiatric: NONE Endocrine: ? 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 BROTHER FH: diabetes mellitus Psychosocial History Where Do You Live? Home Who Do You Live With? self Services at Home: None Smoking Status: Former Smoker ETOH Use: denies use Illicit Drug Use: denies illicit drug use Living Will? yes Power of Aemt/HCP? yes Name of POA/HCP: Rachel perez and Tu Rod (kids) Functional Ability ADLs Independent: dressing, eating, toileting, bathing. Ambulation: independent IADLs Independent: shopping, housework, finances, food prep, telephone, transportation , medication admin. 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 Exam & Diagnostic Data Vital Signs and I&O Vital Signs Date Time Temp Pulse Resp B/P B/P Pulse O2 O2 Flow FiO2 Mean Ox Delivery Rate 07/25 0951 78 124/76 07/25 0653 98.2 78 18 124/76 95 Room Air 07/24 2143 98.0 84 18 142/74 95 Room Air 07/24 2135 85 142/74 07/24 1711 98.3 84 16 162/84 94 Room Air 07/24 1544 98.4 77 18 169/77 97 Room Air 07/24 1432 98.6 79 18 136/88 98 Room Air Intake & Output 07/25 1600 07/25 0800 07/25 0000 07/24 1600 07/24 0800 07/24 0000 Intake Total 1080 0 Output Total Balance 1080 0 Intake, Oral 1080 0 Number 3 1 Bowel Movements Patient 208 lb 212 lb Weight Weight Bed scale Measurement Method Physical Exam: General: no apparent distress. Alert. Eyes: No obvious scleral icterus. HEENT: No jugular venous distention or abnormal jugular venous pulsations. Cardiovascular: Normal intensity S1/S2. Regular Respiratory: Decreased air entry on the right Abdomen: Soft, nontender with no guarding or rebound tenderness. Musculoskeletal: No clubbing or cyanosis noted Skin: warm Neurologic: No gross focal deficits noted. Labs/Bryon Results: Laboratory Tests 07/25 07/24 0625 2320 Chemistry Sodium (137 - 145 mmol/L) 141 Potassium (3.5 - 5.1 mmol/L) 3.5 Chloride (98 - 107 mmol/L) 107 Carbon Dioxide (22 - 30 mmol/L) 24 Anion Gap (5 - 16) 11 BUN (7 - 17 mg/dL) 8 Creatinine (0.5 - 1.0 mg/dL) 0.7 Estimated GFR (>60 ml/min) > 60 BUN/Creatinine Ratio (7 - 25 %) 11.4 Hematology CBC w Diff NO MAN DIFF REQ NO MAN DIFF REQ WBC (4.8 - 10.8 /CUMM) 6.2 5.9 RBC (4.20 - 5.40 /CUMM) 3.34 L 3.37 L Hgb (12.0 - 16.0 G/DL) 11.0 L 11.4 L Hct (37 - 47 %) 32.8 L 32.7 L MCV (81.0 - 99.0 FL) 98.1 97.0 MCH (27.0 - 31.0 PG) 33.0 H 33.7 H MCHC (33.0 - 37.0 G/DL) 33.6 34.8 RDW (11.5 - 14.5 %) 14.3 14.0 Plt Count (130 - 400 /CUMM) 211 202 MPV (7.4 - 10.4 FL) 8.5 8.0 Gran % (42.2 - 75.2 %) 50.8 53.3 Lymphocytes % (20.5 - 51.1 %) 32.4 27.5 Monocytes % (1.7 - 9.3 %) 11.6 H 13.4 H Eosinophils % (0 - 5 %) 4.9 5.6 H Basophils % (0.0 - 2.0 %) 0.3 0.2 Absolute Granulocytes (1.4 - 6.5 /CUMM) 3.2 3.2 Absolute Lymphocytes (1.2 - 3.4 /CUMM) 2.0 1.6 Absolute Monocytes (0.10 - 0.60 /CUMM) 0.7 H 0.8 H Absolute Eosinophils (0.0 - 0.7 /CUMM) 0.3 0.3 Absolute Basophils (0.0 - 0.2 /CUMM) 0 0 07/24 07/24 1118 0935 Chemistry Lactic Acid Cancelled Urines Urine Color (YEL,AMB,STR) YEL Urine Clarity (CLEAR) CLEAR Urine pH (5.0 - 8.0) 6.0 Ur Specific [place] (1.001 - 1.035) <= 1.005 Urine Protein (NEG,<30 MG/DL) NEG Urine Ketones (NEG) NEG Urine Nitrite (NEG) NEG Urine Bilirubin (NEG) NEG Urine Urobilinogen (0.1 - 1.0 EU/dl) 0.2 Ur Leukocyte Esterase (NEG) NEG Ur Microscopic SEDIMENT EXAMINED Urine RBC (0 - 5 /HPF) 1-3 Ur Epithelial Cells (NONE,FEW) RARE Urine Hemoglobin (NEG) SMALL H Urine Glucose (N MG/DL) NEG 07/24 0829 Chemistry Sodium (137 - 145 mmol/L) 143 Potassium (3.5 - 5.1 mmol/L) 3.9 Chloride (98 - 107 mmol/L) 107 Carbon Dioxide (22 - 30 mmol/L) 22 Anion Gap (5 - 16) 14 BUN (7 - 17 mg/dL) 12 Creatinine (0.5 - 1.0 mg/dL) 0.8 Estimated GFR (>60 ml/min) > 60 BUN/Creatinine Ratio (7 - 25 %) 15.0 Glucose (65 - 99 mg/dL) 110 H Lactic Acid (0.7 - 2.1 mmol/L) 1.5 Calcium (8.4 - 10.2 mg/dL) 9.6 Total Bilirubin (0.2 - 1.3 mg/dL) 0.6 AST (14 - 36 U/L) 28 ALT (9 - 52 U/L) 38 Alkaline Phosphatase (<127 U/L) 71 Troponin I (< 0.11 ng/ml) < 0.01 Total Protein (6.3 - 8.2 g/dL) 8.0 Albumin (3.5 - 5.0 g/dL) 4.2 Globulin (1.9 - 4.2 gm/dL) 3.8 Albumin/Globulin Ratio (1.1 - 2.2 %) 1.1 TSH (0.270 - 4.200 uIU/mL) 1.730 Thyroxine (T4) (4.5 - 10.9 ug/dL) 9.6 Coagulation PT (9.4 - 12.5 SEC) 10.8 INR (0.90 - 1.19) 0.99 APTT (25 - 37 SEC) 33 Hematology CBC w Diff NO MAN DIFF REQ WBC (4.8 - 10.8 /CUMM) 8.8 RBC (4.20 - 5.40 /CUMM) 3.78 L Hgb (12.0 - 16.0 G/DL) 12.6 Hct (37 - 47 %) 36.8 L MCV (81.0 - 99.0 FL) 97.1 MCH (27.0 - 31.0 PG) 33.2 H MCHC (33.0 - 37.0 G/DL) 34.2 RDW (11.5 - 14.5 %) 14.5 Plt Count (130 - 400 /CUMM) 240 MPV (7.4 - 10.4 FL) 7.8 Gran % (42.2 - 75.2 %) 49.4 Lymphocytes % (20.5 - 51.1 %) 37.5 Monocytes % (1.7 - 9.3 %) 9.0 Eosinophils % (0 - 5 %) 4.0 Basophils % (0.0 - 2.0 %) 0.1 Absolute Granulocytes (1.4 - 6.5 /CUMM) 4.4 Absolute Lymphocytes (1.2 - 3.4 /CUMM) 3.3 Absolute Monocytes (0.10 - 0.60 /CUMM) 0.8 H Absolute Eosinophils (0.0 - 0.7 /CUMM) 0.4 Absolute Basophils (0.0 - 0.2 /CUMM) 0 Diagnostic Data EKG Results Tracing personally reviewed; shows sinus rhythm at [address]: 1. Interval postoperative changes with right lower lobectomy. 2. Filling defect distal right main pulmonary artery adjacent to the postoperative change. The appearance is suspicious for pulmonary embolism. Filling defect also identified in the anterior aspect left atrium adjacent to the postoperative changes involving the right lower lobe pulmonary vein. 3. No new nodules identified. 4. Low right lung volume. Right-sided effusion including loculated fluid right paramediastinal region and medial aspect right base. 5. Small mediastinal lymph nodes. Soft tissue density right hilar region may represent scarring versus lymphadenopathy. 6. Colonic diverticulosis. No definite evidence of acute diverticulitis. 7. Incomplete distention versus mild colonic wall thickness involving transverse colon, descending and sigmoid colon. This especially evident in the distal descending/sigmoid colon (series 602 image 40). Colitis is included in the differential possibility. Direct visualization recommended. 8. Hepatic and left renal cysts. VTE: Positive Assessment/Plan Assessment/Plan 1. Lower GI bleed 2. History of multiple myeloma myeloma 3. History of CMV retinitis 4. COPD 5. History of lung CA with recent right lower lobe lobectomy 6. Abnormal CT scan with concern for pulmonary embolism/atrial filling defect 7. Remote history of pulmonary embolism approximately 10 years ago in the setting of knee replacement I reviewed the CT scan personally with Dr. Figueroa and we are not completely convinced on the basis of those images that the patient has either an acute pulmonary embolism or a true left atrial filling defect. We are obtaining an echocardiogram and V/Q scan for further evaluation but would not start on anticoagulation for now given the GI bleeding. Giovanny Salas MD [facility] Consult Acknowledgment - Thank you for your consult request.
[2017-07-25 14:46] VITALS: BP 140/78
--- NOTE | 2017-07-25 16:15 | ECHOCARDIOGRAM REPORT ---
LAUREL PANDYA Age: 76 : 1940 Gender: F Exam Date: 07/25/2017 11:10 Exam Location: [address] Ht (in): 66 Wt (lb): 207 BSA: 2.13 BP: 136 / 88 Ordering Physician: Amber Brown MD Referring Physician: Amber Brown MD Technologist: Mark Velasquez [facility] Room Number: 178 Indications: ACUTE PULMONARY EMBOLISM Rhythm: Technical Quality: Fair FINDINGS Left Ventricle Normal global left ventricular size, wall thickness, systolic function with no obvious regional wall motion abnormalities. Left ventricular ejection fraction is estimated at 55 %. Right Ventricle Normal right ventricular size and function. Right Atrium Normal right atrial size. Left Atrium Normal left atrial size. Mitral Valve Structurally normal mitral valve. Trace mitral regurgitation. Aortic Valve No aortic stenosis. Trileaflet aortic valve. Tricuspid Valve Tricuspid valve not well visualized, grossly normal. Trace tricuspid regurgitation. Unable to estimate the right ventricular systolic pressure. Pulmonic Valve Pulmonic valve not well visualized, grossly normal. Pericardium Minimal pericardial effusion. Great Vessels Normal size aortic root. CONCLUSIONS Definity contrast was used for image enhancement. Normal global left ventricular size, wall thickness, systolic function with no obvious regional wall motion abnormalities. Left ventricular ejection fraction is estimated at 55 %. Normal right ventricular size and function. Unable to estimate the right ventricular systolic pressure. Minimal pericardial effusion. Charly Salas M.D. (Electronically Signed) Final Date: 25 July 2017 16:14 MEASUREMENTS (Male / Female) Normal Values 2D ECHO LV Diastolic Diameter PLAX 4.2 cm 4.2 - 5.9 / 3.9 - 5.3 cm LV Systolic Diameter PLAX 2.6 cm 2.1 - 4.0 cm LV Fractional Shortening PLAX 38.1 % 25 - 46 % LV Ejection Fraction 2D Teich 68.7 % IVS Diastolic Thickness 0.9 cm LVPW Diastolic Thickness 0.9 cm LV Relative Wall Thickness 0.4 RV Internal Dim ED PLAX 3.3 cm 1.9 - 3.8 cm LVOT Diameter 1.9 cm Aortic Root Diameter 3.1 cm LA Systolic Diameter LX 3.2 cm 3.0 - 4.0 / 2.7 - 3.8 cm Ascending Aorta Diameter 3.4 cm DOPPLER AV Peak Velocity 149.0 cm/s AV Peak Gradient 8.9 mmHg AV Mean Velocity 93.7 cm/s AV Mean Gradient 4.0 mmHg AV Velocity Time Integral 29.3 cm LVOT Peak Velocity 85.7 cm/s LVOT Peak Gradient 2.9 mmHg LVOT Mean Velocity 48.9 cm/s LVOT Mean Gradient 1.0 mmHg LVOT Velocity Time Integral 16.4 cm LVOT Stroke Volume 46.5 cm AV Area Cont Eq vti 1.6 cm AV Area Cont Eq pk 1.6 cm MV Peak Velocity 112.0 cm/s MV Peak Gradient 5.0 mmHg MV Mean Velocity 69.1 cm/s MV Mean Gradient 2.0 mmHg Mitral E Point Velocity 82.9 cm/s Mitral A Point Velocity 100.0 cm/s Mitral E to A Ratio 0.8 MV PHT Velocity 96.4 cm/s MV Deceleration [place] 403.0 cm/s MV Pressure Half Time 71.8 ms MV Area PHT 3.1 cm MV Deceleration Time 236.0 ms LV E' Lateral Velocity 11.2 cm/s Mitral E to LV E' Lateral Ratio 7.4 LV E' Septal Velocity 8.2 cm/s Mitral E to LV E' Septal Ratio 10.1
--- NOTE | 2017-07-25 16:19 | Proc Note Colonoscopy ---
Colonoscopy Procedure Medical History: unchanged Mental Status: alert/oriented Heart/Lung Eval Prior to Sedation: within normal limits Candidate for Sedation? Yes Date of Last Colonoscopy: 2012 Procedure Date: 07/25/17 Procedure Type: colonoscopy Solar System Designer: MD Mace Deborah E. ASA Classification: III Indications: 1. Acute Blood Loss Anemia 2. Hematochezia Instrument (Colonoscope): single channel Meds Received: MAC Patient's Tolerance: good Complications: none Extent Reached: terminal ileum Prep: good Procedure: The patient took a split dose colonic preparation after which they were NPO for an appropriate time prior to procedure. Note: Informed consent was obtained prior to procedure. Risks and benefits of procedure were discussed with patient. Potential complications discussed included perforation, bleeding, abdominal pain, and adverse reaction to medications. It was explained that iany or all of these complications could result in the need for extended hospitalization, emergency surgery, transfusion of packed red blood cells (with the risk of HIV or hepatitis virus), intubation with mechanical ventilation, and possible need for antibiotics. It was further explained that an existing tumor polyp or mucosal abnormality might not be identified at the time of the procedure thus resulting in a missed opportunity for early diagnosis and treatment of a gastrointestinal malignancy or disease with possible interval development of a gastrointestinal cancer or other disease with possible worsening of clinical condition in the interval between endoscopies. It was also discussed that complications are not limited to those listed above. Possible alternatives to endoscopic treatment or evaluation were discussed. All questions were answered. Continuous EKG and blood pressure monitors were attached. Supplemental oxygen was provided with O2 Sat monitoring. Patient was placed in the left lateral decubitus position. A surgical timeout was performed. All persons in the room were identified. All concerns were expressed and answered. Sedation was administered by anesthesia and titrated to comfort prior to starting procdedure. A digital rectal exam was performed. There was normal tone and no masses. The Olympus CHF 180AL video colonoscope was advanced under direct vision to the level of the cecum. The cecum was easily identified by internal landmarks. The cecum, ileocecal valve and appendiceal orifice were easily identified and photo documented. The ileocecal valve was intubated. The colonoscope was advanced for a distance of 10 cm within the terminal ileum. There was a normal mucosal and vascular pattern throughout the terminal ileum. With colonoscope in the forward-viewing position it was slowly withdrawn and all areas were reinspected. The cecum, ascending colon, hepatic flexure, transverse colon, splenic flexure, descending colon, sigmoid colon, rectosigmoid junction, rectum and retroflexed view of the rectum all fully examined. Retroflexed view of the rectum revealed a normal mucosal and vascular pattern. Large Grade 2 Internal and External hemorrhoids which began to bleed after retroflexion of the colonoscope. There was a normal mucosal and vascular pattern throughout the colon. There were cascading small and medium sized diverticuli throughout the sigmoid and descending colon. There were also scattered diverticuli throughout the remainder of the colon. However diverticulosis was most prominent in the sigmoid colon with associated mucosal hypertrophy and tortuosity. Air was suctioned as the scope was withdrawn from the colon. Patient tolerated the procedure well. Cecal withdrawal time: 11 minutes Colonic preparation: [place] Prep Scale Total: 9 minutes. Difficulty of Colonoscopy: Not Difficult EBL: Minimal Specimens Removed: None Findings: 1. Large Grade 2 Internal and External hemorrhoids, with bleeding after retroflexion 2. Pandiverticulosis Impression: 1. Large Grade 2 Internal and External hemorrhoids, with bleeding after retroflexion 2. Pandiverticulosis It was felt that rectal bleeding on admission was in all likelihood due to large bleeding, Grade 2 Internal and External hemorrhoids. On introducing the colonoscope into the colon there was no blood noted. However upon retroflexion and further manipulation of the colonoscope there was blood noted on the 4 x 4's used to hold the colonoscope. Recommendations: 1. Advance diet 2. Patient follow-up with me in the office for discussion regarding possible hemorrhoid band ligation 3. If H&H remained stable and there no further signs of bleeding consider discharge to home 4. Would suggest the patient take stool softener on a regular basis Followup Colonscopy Screen In: in 10 years
--- NOTE | 2017-07-25 17:05 | NUCLEAR MEDICINE REPORT ---
EXAMINATION: PULMONARY VENTILATION PERFUSION STUDY CLINICAL INFORMATION: Suspected pulmonary embolism on recent CT. Also suspected right to left shunt. COMPARISON: No previous radionuclide lung scan is available for comparison. Chest CTA dated 07/24/2017 is available for comparison. TECHNIQUE: Serial gamma scintillation camera images were obtained over the posterior chest during the single breath, equilibrium rebreathing and washout of 15.8 mCi Xe 133 gas. The patient then received 3.9 mCi Tc-99m MAA intravenously and a 6-view perfusion study was performed. FINDINGS: Ventilation images: On the single breath and equilibrium images there is homogeneous distribution of gas bilaterally. The right hemidiaphragm is elevated. During the washout phase there is no abnormal retention. Perfusion images: No segmental perfusion defects are present. Right hemidiaphragm is elevated, with the appearance of the right lung well matched to the ventilation images. There is a mild diffuse decrease in activity in the visualized right lung, in this is more severe on the posterior images, likely due to a right pleural effusion. The activity is otherwise homogeneous in both lungs. There are no focal anatomic appearing perfusion defects present. The cardiac silhouette appears dilated. CTA dated 07/24/2017 shows elevation the right hemidiaphragm and a small right pleural effusion. In addition, filling defects are present in the distal right main pulmonary artery and in the left atrium. IMPRESSION: Very low probability of pulmonary embolism. Findings due to elevation of the right hemidiaphragm, a small right pleural effusion and cardiomegaly are noted.
--- NOTE | 2017-07-25 17:30 | Discharge Summary ---
Visit Information Visit Dates Admission Date: 07/24/17 Discharge Date: 07/26/17 Hospital Course Course Attending Physician: Cristian To MD Primary Care Physician: Alma LOPEZ,Da Hampton Hospital Course: Patient is a 76-year-old female with past medical history of colonic developed cholelithiasis and diverticulitis, CMV retinitis, macula degeneration, hypertension, hyperlipidemia, multiple myeloma on Cytoxan and steroids, Rt sided Stage I breast cancer status lumpectomy and chemotherapy, remote history of PE ( ? side) following a right knee replacement surgery in 2007, recent right lower lobectomy secondary to stage I right lung cancer who presents with bright red blood per rectum this morning while having a bowel movement. CURRENT THERAPY: 1. Ixazomib 4 mg weekly, cytoxan 50 mg daily, and dexamethasone 20mg weekly 2. Zometa monthly 3. Acyclovir 400 mg twice a day 4. IVIG monthly, started 08/2016 PRIOR THERAPY: 1. Lumpectomy, 11/2004. 2. EBRT, 01/2005. 3. Arimidex, 03/2005 through 12/2007. 4. Tamoxifen, 12/2007 through 08/2010. 5. Lenolidamide/Dexamethasone (05/13/2013-02/2014). 6. Lenolidamide maintenance (02/2014-06/2014). 7. Lenolidamide 15 mg days 1-21 every 28 days (06/2014-09/17/15). She was admitted to the telemetry unit and below are the problems that were addressed: 1. Question of Right lower lobe pulmonary embolism on CTA which was found to be low probability on VQ scan as it is in the area of her recent Rt lower lobectomy for stage I lung cancer. Bilateral LE DVT was negative and patient remained clinically stable. ECHO was negative for any Rt to left shunt or other structural abnormality; EF 55%. Anticoagulation was not deemed neccessary and so was never started especially in the light of her active GI bleed. Avoid NSAIDS. Consider restarting asprin if ok with GI. 2. Acute lower GI bleed-found to be hemorrhoidal on colonoscopy. Likely will be self limited. H&H stable so far. Outpatient GI follow up recommended. Repeat CBC in 1 week. 3. History of multiple myeloma; will follow up with her outpatient oncologist for further mgt 4. History of Stage I right lower lobe lung cancer status post lobectomy in May 2017; continue outpatient follow up with college athlete and ocologist as needed. 5. History of stage 1 breast cancer in 2004 s/p lumpectomy and chemo 6. History of hypertension, hyperlipidemia; Continue current home medications 7. Hx of previous PE following a knee replacement surgery in 2007 8. CMV retinitis/positive viral nasal swab Continue daily acyclovir Complications: none Allergies: Coded Allergies: methocarbamol (Severe, PARALYSIS FROM WAIST DOWN 07/24/17) STATINS (Intermediate, BODY ACHES 02/28/13) Significant Procedures: Colonscopy Pertinent Lab Results: ECHO-Definity contrast was used for image enhancement. Normal global left ventricular size, wall thickness, systolic function with no obvious regional wall motion abnormalities. Left ventricular ejection fraction is estimated at 55 %. Normal right ventricular size and function. Unable to estimate the right ventricular systolic pressure. Minimal pericardial effusion. VQ scan-Very low probability of pulmonary embolism. Findings due to elevation of the right hemidiaphragm, a small right pleural effusion and cardiomegaly are noted. Disposition Summary Disposition Principal Diagnosis: 1. Acute lower GI bleed 2. Right lower lobe pulmonary embolism seen on CTA ruled out with V/Q scan Additional Diagnosis: 3. Multiple myeloma 4. History of right lower lobe lung cancer status post lobectomy in May 2017 5. History of breast cancer in 2004 s/p resection and chemo. In remission 6. History of hypertension, hyperlipidemia 7. Hx of previous PE following a knee replacement surgery in 2007 8. CMV retinitis Discharge Disposition: home health services Discharge Instructions General Discharge Information Code Status: Full Code Patient's Diet: Heart healthy Patient's Activity: as tolerated Follow-Up Instructions/Appts: Please follow up with your PCP in 1 week Please follow up with your GI physician in 1 week Please follow up with your Behavioral Psychologist in 1-2 weeks Medications at Discharge Discharge Medications: Stop taking the following medications: Amoxicillin/Clavulanate Potass (Amox-Clav 875-125 MG Tablet) 875 MG-125 MG TABLET ORAL TWICE DAILY Qty = 20 Continue taking these medications: Cholecalciferol (Vitamin D3) (Vitamin D) 2,000 UNIT TABLET 1 Tablet ORAL DAILY Comments: Last Taken:07/26/17 Time:0804 Acyclovir (Acyclovir) 400 MG TABLET 1 Tablet ORAL DAILY Qty = 60 Comments: Last Taken:07/25/17 Time:944 Metoprolol Succinate (Metoprolol Succinate) 25 MG TAB 1 Tablet ORAL DAILY Qty = 30 Comments: Last Taken:07/26/17 Time:804 Losartan Potassium (Losartan Potassium) 50 MG TABLET 1 Tablet ORAL DAILY Days = 0 Comments: Last Taken:07/25/17 Time:2051 Atorvastatin Calcium (Lipitor) 10 MG TABLET 1 Tablet ORAL DAILY Days = 0 Comments: Last Taken:07/25/17 Time:2051 Calcium Citrate (Calcium Citrate) 250 MG CALCIUM TABLET 50 Milligram ORAL DAILY Comments: NOT GIVEN Cyanocobalamin (Vitamin B-12) 1,000 MCG TABLET 1 Tablet ORAL DAILY Comments: NOT GIVEN Multivits,Ca,Minerals/Iron/FA (Women's Daily Caplet) 27 MG IRON-400 MCG TABLET 1 Tablet ORAL DAILY Comments: Last Taken:07/26/17 Time:804 Mv-Mn/Lutein/Zeax/Bilber/Hb277 (Macular Health Formula Capsule) 5 MG-1 MG-7.5 MG CAPSULE 1 Tablet ORAL DAILY Comments: NOT GIVEN Bevacizumab (Avastin) 25 MG/ML VIAL 1 Inj INJECTABLE ONCE A MONTH Comments: NOT GIVEN Light Mineral Oil/Min Oil/Pf (Retaine Mgd Eye Drops) 0.5 %-0.5 % DROPERETTE 1 DROP Both Eyes DAILY Qty = 0 Comments: NOT GIVEN Olopatadine HCl (Pazeo) 0.7 % DROPS 1 DROP Both Eyes DAILY Qty = 0 Comments: NOT GIVEN Start taking the following new medications: Polyethylene Glycol 3350 (Miralax) 17 GRAM/DOSE POWDER 17 Gram ORAL DAILY Days = 30 No Refills Comments: NOT GIVEN Sennosides/Docusate Sodium (Senna Plus Tablet) 8.6 MG-50 MG TABLET 2 Tablet ORAL DAILY as needed for CONSTIPATION Qty = 30 No Refills Comments: NOT GIVEN Copies To: Alma LOPEZ,Da Hampton Attending MD Review Statement Documenting Attending: Cristian To MD Other Findings: The patient was seen and discussed with house staff. I agree with plan of care upon discharge. Copy of records to be sent to her primary team at [place].
[2017-07-25 20:09] VITALS: BP 144/66
[2017-07-25 20:45] VITALS: BP 134/72
[2017-07-25] MEDS ORDERED: SENNA PLUS TAB1 EACH PO (20:52)
[2017-07-25] MEDS ORDERED: MIRALAX119 GM PO (20:52)
--- NOTE | 2017-07-25 20:57 | Patient Discharge Instructions ---
Discharge Instructions General Discharge Information You were seen/treated for: 1. Acute lower GI bleed due to hemorrhoids You had these procedures: Colonoscopy Watch for these problems: recurrent large volume bleeding and return to ER [facility] Special Instructions: Please follow up with your PCP in 1 week Please follow up with your GI physician in 1 week Please follow up with your Sound Ranging Crewmember in 1-2 weeks Please follow up with your bowstring maker in 1 week after discharge, discuss about resuming Aspirin Diet Recommended Diet: Heart Healthy Activity Activity Self Limited: Yes Acute Coronary Syndrome Inclusion Criteria At DC or during hospital stay patient has or had the following: ACS DIAGNOSIS No Discharge Core Measures Meds if any: Prescribed or Continued at Discharge Meds if any: NOT Prescribed or Continued at Discharge Congestive Heart Failure Inclusion Criteria At DC or during hospital stay patient has or had the following: CHF DIAGNOSIS No Discharge Core Measures Meds if any: Prescribed or Continued at Discharge Meds if any: NOT Prescribed or Continued at Discharge Cerebrovascular accident Inclusion Criteria At DC or during hospital stay patient has or had the following: CVA/TIA Diagnosis No Discharge Core Measures Meds if any: Prescribed or Continued at Discharge Meds if any: NOT Prescribed or Continued at Discharge Venous thromboembolism Inclusion Criteria VTE Diagnosis No VTE Type NONE VTE Confirmed by (Test) NONE Discharge Core Measures - Per Current guidelines, there needs to be overlap - treatment for the first 5 days of Warfarin therapy. - If discharged on Warfarin prior to 5 days of - overlap therapy, the patient will need to be - assessed for post discharge needs including - *Post discharge parental anticoagulation - *Warfarin and/or parental anticoagulation education - *Follow up date to check INR post discharge At least 5 days overlap therapy as Inpatient No Meds if any: Prescribed or Continued at Discharge Note: Overlap Therapy is Warfarin and Anticoagulant Meds if any: NOT Prescribed or Continued at Discharge
[2017-07-25 21:14] LABS: ABSOLUTE BASOPHIL COUNT 0 /CUMM (0.0-0.2); ABSOLUTE EOSINOPHIL COUNT 0.4 /CUMM (0.0-0.7); ABSOLUTE GRANULOCYTE CT 3.5 /CUMM (1.4-6.5); ABSOLUTE LYMPH COUNT 1.8 /CUMM (1.2-3.4); BASOPHIL % 0.2 % (0.0-2.0); EOSINOPHIL % 5.6 % (0-5); GRANULOCYTE % 52.2 % (42.2-75.2); HEMATOCRIT 30.9 % (37-47); MEAN CORPUSCULAR HGB CONC 33.9 G/DL (33.0-37.0); MEAN CORPUSCULAR VOLUME 97.3 FL (81.0-99.0); MEAN PLATELET VOLUME 7.8 FL (7.4-10.4); PLATELET COUNT 211 /CUMM (130-400); RBC DISTRIBUTION WIDTH 14.8 % (11.5-14.5); RED BLOOD CELL CT 3.17 /CUMM (4.20-5.40); WHITE BLOOD CELL COUNT 6.6 /CUMM (4.8-10.8)
[2017-07-26 06:53] VITALS: BP 132/64
--- NOTE | 2017-07-26 07:13 | PN- Housestaff ---
See Addendum Subjective Follow-up For: 1. Acute lower GI bleed Complaints: no complaints Tele-Events Since Last Visit: SR 69-95 Subjective: Feels a lot better today, slept well. Not bloody BM since yesterday. Denies any symptoms Review of Systems Constitutional: Reports: no symptoms. Objective Last 24 Hrs of Vital Signs/I&O Vital Signs Date Time Temp Pulse Resp B/P B/P Pulse O2 O2 Flow FiO2 Mean Ox Delivery Rate 07/26 0805 79 132/64 07/26 0653 97.9 69 20 132/64 96 Room Air 07/25 2052 76 134/72 07/25 2045 98.0 76 18 134/72 94 Room Air 07/25 2009 98.2 67 20 144/66 97 07/25 1446 97.9 82 18 140/78 96 Room Air 07/25 1342 Room Air 07/25 0951 78 124/76 Intake & Output 07/26 1600 07/26 0800 07/26 0000 Intake Total Output Total Balance Patient 212 lb Weight Weight Bed scale Measurement Method Physical Exam General Appearance: Alert, Oriented X3, Cooperative, No Acute Distress Cardiovascular: Regular Rate, Normal S1, Normal S2 Lungs: Clear to Auscultation, Normal Air Movement Abdomen: Normal Bowel Sounds, Soft, No Tenderness Extremities: No Edema, Normal Pulses Current Medications: Current Medications Sig/Steven Start time Last Medication Dose Route Stop Time Status Admin Acetaminophen 650 MG Q6P PRN 07/24 1515 AC PO Acyclovir 400 MG DAILY 07/25 09 AC 07/25 PO 07/26 0859 0945 Amoxicillin/ 875 MG BID 07/24 2099 DC 07/25 Clavulanate Potassium PO 07/25 Atorvastatin Calcium 10 MG 07/24 AC 07/25 PO 2051 Cholecalciferol 2,000 IU DAILY 07/25 09 AC 07/26 PO 0804 Losartan Potassium 50 MG 07/24 AC 07/25 PO 2051 Metoprolol Succinate 25 MG DAILY 07/25 09 AC 07/26 PO 0805 Multivitamins 1 TAB DAILY 07/25 09 AC 07/26 PO 0805 Polyethylene Glycol 17 GM DAILY 07/26 09 AC PO Senna/Docusate Sodium 2 TAB DAILY PRN 07/25 1730 AC PO Sodium Chloride 1,000 ML Q10H 07/25 0800 DC 07/25 IV 0944 Last 24 Hrs of Lab/Bryon Results Last 24 Hrs of Labs/Mics: Laboratory Tests 07/26/17 0610: CBC w Diff Pending, WBC Pending, RBC Pending, Hgb Pending, Hct Pending, MCV Pending, MCH Pending, MCHC Pending, RDW Pending, Plt Count Pending, MPV Pending 07/25/17 2200: CBC w Diff Cancelled, WBC Cancelled, RBC Cancelled, Hgb Cancelled, Hct Cancelled , MCV Cancelled, MCH Cancelled, MCHC Cancelled, RDW Cancelled, Plt Count Cancelled, MPV Cancelled 07/25/17 2040: CBC w Diff NO MAN DIFF REQ, RBC 3.17 L, MCV 97.3, MCH 33.0 H, MCHC 33.9, RDW 14.8 H, MPV 7.8, Gran % 52.2, Lymphocytes % 27.4, Monocytes % 14.6 H, Eosinophils % 5.6 H, Basophils % 0.2, Absolute Granulocytes 3.5, Absolute Lymphocytes 1.8, Absolute Monocytes 1.0 H, Absolute Eosinophils 0.4, Absolute Basophils 0 Lines/Diet/Fluids Lines: peripheral lines Assessment/Plan Assessment: Patient is a 76-year-old female with past medical history of colonic developed cholelithiasis and diverticulitis, CMV retinitis, macula degeneration, hypertension, hyperlipidemia, multiple myeloma on Cytoxan and steroids, Rt sided breast cancer status post chemotherapy in remission, remote history of PE (? side) following a right knee replacement surgery in 2007, recent right lower lobectomy secondary to stage I right lung cancer who presents with bright red blood per rectum this morning while having a bowel movement. She is admitted to the telemetry unit, below are the problem being addressed. 1. Right lower lobe pulmonary embolism-unlcear if this is an artifact due to recent surgery in the area, an old PE or an acute PE. She has risk factors of recent surgery in the past 4 weeks/decreased mobility due to hospitalization and cancer 2. Acute lower GI bleed-Could be due to diverticulosis vs interanl hemmorrhoids. Less likely an ulcer from prolonged steroid use 3. History of multiple myeloma-treated with cytoxan and steroids 4. History of right lower lobe lung cancer status post lobectomy in May 2017 5. History of breast cancer in 2004 s/p resection and chemo. In remission 6. History of hypertension, hyperlipidemia 7. Hx of previous PE following a knee replacement surgery in 2007 Plan 1. Question of Right lower lobe pulmonary embolism on CTA which was found to be low probability on VQ scan as it is in the area of her recent Rt lower lobectomy for stage I lung cancer. Bilateral LE DVT was negative and patient remained clinically stable. ECHO was negative for any Rt to left shunt or other structural abnormality; EF 55%. Anticoagulation was not deemed neccessary and so was never started especially in the light of her active GI bleed. Avoid NSAIDS. Consider restarting asprin if ok with GI. 2. Acute lower GI bleed-found to be hemorrhoidal on colonoscopy. Likely self limited. H&H stable so far. AM labs pending. Outpatient GI follow up recommended. Monitor CBC 3. History of multiple myeloma; will follow up with her outpatient oncologist for further mgt 4. History of Stage I right lower lobe lung cancer status post lobectomy in May 2017; continue outpatient follow up with energy conservation representative and oncologist as needed. 5. History of stage 1 breast cancer in 2004 s/p lumpectomy and chemo 6. History of hypertension, hyperlipidemia; Continue current home medications 7. Hx of previous PE following a knee replacement surgery in 2007 8. CMV retinitis/positive viral nasal swab on acyclovir Problem List: 1. Lower GI bleed Pain Ratin Pain Location: na Pain Goal: Remain pain free Pain Plan: current plan Tomorrow's Labs & Rationales: cbc
[2017-07-26 08:05] VITALS: BP 132/64
[2017-07-26 08:23] LABS: ABSOLUTE BASOPHIL COUNT 0 /CUMM (0.0-0.2); ABSOLUTE EOSINOPHIL COUNT 0.4 /CUMM (0.0-0.7); ABSOLUTE GRANULOCYTE CT 3.8 /CUMM (1.4-6.5); ABSOLUTE LYMPH COUNT 2.1 /CUMM (1.2-3.4); ABSOLUTE MONOCYTE COUNT 0.8 /CUMM (0.10-0.60); BASOPHIL % 0.1 % (0.0-2.0); EOSINOPHIL % 5.8 % (0-5); GRANULOCYTE % 53.3 % (42.2-75.2); HEMATOCRIT 31.2 % (37-47); MEAN CORPUSCULAR HGB 33.1 PG (27.0-31.0); MEAN CORPUSCULAR HGB CONC 33.5 G/DL (33.0-37.0); MEAN CORPUSCULAR VOLUME 98.8 FL (81.0-99.0); PLATELET COUNT 196 /CUMM (130-400); RBC DISTRIBUTION WIDTH 14.6 % (11.5-14.5); RED BLOOD CELL CT 3.16 /CUMM (4.20-5.40); WHITE BLOOD CELL COUNT 7.2 /CUMM (4.8-10.8)
--- NOTE | 2017-07-26 11:42 | Event Note ---
Event Note Event Note: Patient family request her medical record to be send to the following Fax number which is her team at [facility]: Fax records to: Medical record contacted and they are going to Fax all the record to [facility]
== END 2017-07-26 12:40 | disposition home health service (06) | DRG 394 ==
LOC: ERH 08:08 → 1NO 12:40 → ERHI 12:40 → ENRESERV 12:58 → ENTRNSPT 13:45 → EDTRNSPT 13:51 → EDTRNSPTSTS 13:51 → EDTRNSPT 13:59 → EDBEDREQ 14:07 → ENRESERV 14:16 → EDTRNSPTSTS 14:45 → CMPTRNSPT 15:34 → ENTRNSPT 15:44 → EDTRNSPT 15:51 → EDTRNSPTSTS 15:51 → EDTRNSPT 16:03 → CMPTRNSPT 16:24 → 1NO 16:28 → ENPENDDIS 07-26 11:59 → 1NO 07-26 12:40
PROVIDERS: Internal Medicine Hematology & Oncology; Physician Assistant; Student in an Organized Health Care Education/Training Program
PROC: 0DJD8ZZ Inspection of Lower Intestinal Tract, Via Natural or Artificial Opening Endoscopic (ICD-10-PCS; principal; 2017-07-25)
DX: K64.8 Other hemorrhoids (principal); C90.00 Multiple myeloma not having achieved remission; B25.8 Other cytomegaloviral diseases; D80.3 Selective deficiency of immunoglobulin G [IgG] subclasses; C34.91 Malignant neoplasm of unspecified part of right bronchus or lung; D62 Acute posthemorrhagic anemia; H30.899 Other chorioretinal inflammations, unspecified eye; K92.1 Melena; K64.4 Residual hemorrhoidal skin tags; J44.9 Chronic obstructive pulmonary disease, unspecified; R00.0 Tachycardia, unspecified; I10 Essential (primary) hypertension; E78.5 Hyperlipidemia, unspecified; E66.9 Obesity, unspecified; Z68.32 Body mass index [BMI] 32.0-32.9, adult; M81.0 Age-related osteoporosis without current pathological fracture; Z86.711 Personal history of pulmonary embolism; Z79.82 Long term (current) use of aspirin; K44.9 Diaphragmatic hernia without obstruction or gangrene; H35.30 Unspecified macular degeneration; Z96.651 Presence of right artificial knee joint; Z87.891 Personal history of nicotine dependence; Z85.3 Personal history of malignant neoplasm of breast; Z85.118 Personal history of other malignant neoplasm of bronchus and lung
CPT/HCPCS: 1NP; 36415; 36592; 74177; 78582; 81001; 82436; 93005; 93010; 93970; A9540; A9558; C8929; Q9957